=== PATIENT | female | born 1945 | race Caucasian/White ===

== ENCOUNTER 2016-08-10 14:45 | Inpatient (IN) | payer MEDICARE, MEDICAID ==
[2016-08-10 15:56] LABS: CHLORIDE,CL 98 mmol/L (98-107); SODIUM,NA 135 mmol/L (136-145)
[2016-08-10] MEDS ORDERED: Sennosides 8.6 MG Tab PO PRN (16:46)
[2016-08-10] MEDS ORDERED: Ondansetron 4 MG Tab.DIS PO PRN (16:46)
[2016-08-10] MEDS ORDERED: Magnesium Hydroxide 400 MG/5 ML Susp 30 ML Cup PO PRN (16:46)
[2016-08-10] MEDS ORDERED: Calcium Carbonate 750 MG Tab.Chew PO PRN (16:46)
[2016-08-10] MEDS ORDERED: Magnesium Hydroxide 400 MG/5 ML Susp 30 ML Cup PO ONE (16:53)
[2016-08-10] MEDS ORDERED: diphenhydrAMINE 25 MG Cap PO ONE (16:58)
[2016-08-10] MEDS ORDERED: Acetaminophen 325 MG Tab PO ONE (16:58)
[2016-08-10] MEDS ORDERED: ClonazePAM 0.5 MG Tab PO PRN (17:08)
[2016-08-10] MEDS ORDERED: Ferrous Sulfate 325 MG Tab PO ONE (17:09)
[2016-08-10] MEDS ORDERED: Sodium Chloride 0.9% 1,000 ML IV SCH (17:15)
--- NOTE | 2016-08-10 17:16 | PCM.HP ---
H&P History of Present Illness - General Date of Service: 08/10/16 Admit Problem/Dx: Admission Diagnosis/Problem Admission Diagnosis/Problem Anemia Source of Information: Patient, Family (Friends), Old records History Limitations: Reports: Altered mental status - History of Present Illness Initial Comments - Free Text/Narative: Patient presented to clinic due to weakness and mental status changes after falling on 08-08-16 experiencing a right humeral fracture. After work up in clinic, patient had 7.2 hgb with iron level of 11. Patient demonstrates occasional memory issues. Patient's friends state her living situation presents a possible safety issue, worsened now with her current limitations related to fall. Patient unable to get up without assistance from seated position in clinic. Patient also has shuffled gait. Onset of Symptoms: Reports: gradual Symptom Onset Date: 08/08/16 (Patient has declined in general and her fall Wednesday caused her symptoms to worse per her friends.) Location: Reports: generalized (weakness) - Related Data Allergies/Adverse Reactions: Allergies Allergy/AdvReac Type Severity Reaction Status Date / Time No Known Allergies Allergy Verified 08/08/16 17:49 Home Medications: Home Meds Etodolac 300 mg PO ASDIRECTED PRN 10/17/14 [History] Ferrous Sulfate 325 mg PO DAILY 10/17/14 [History] Omeprazole [Omeprazole] 20 mg PO BID 10/18/14 [History] ClonazePAM [KlonoPIN] 0.5 mg PO BID PRN 03/15/15 [History] PARoxetine [Paxil] 20 mg PO DAILY 03/15/15 [History] Hydrocodone/Acetaminophen [Hydrocodon-Acetaminophen 5-325] 1 each PO Q4HR PRN [History] Past Medical History Cardiovascular History: Reports: None (Patient denies) Respiratory History: Reports: None (patient denies, but is an active smoker) Gastrointestinal History: Reports: Other (see below) (previous bleeding ulcer) Genitourinary History: Reports: Other (see below) (prolapsed bladder) [employer] History: Reports: Musculoskeletal History: Reports: Fracture (right humerus) Neurological History: Reports: None (patient denies) Psychiatric History: Reports: Anxiety, Depression - Past Surgical History GI Surgical History: Reports: Appendectomy Musculoskeletal Surgical History: Reports: Shoulder surgery Social & Family History - Tobacco Use Smoking Status *Q: Current Every Day Smoker Years of Tobacco use: 25 Packs/Tins Daily: 0.5 Used Tobacco, but Quit: Yes Second Hand Smoke Exposure: No - Caffeine Use Caffeine Use: Reports: Coffee - Alcohol Use Alcohol Use History: Yes Days Per Week of Alcohol Use: 0 Number of Drinks Per Day: 0 Total Drinks Per Week: 0 Alcohol Use Frequency: Rarely - Recreational Drug Use Recreational Drug Use: No Drug Use in Last 12 Months: No H&P Review of Systems - Review of Systems: Review Of Systems: See Below General: Reports: weakness, fatigue HEENT: Reports: no symptoms Pulmonary: Reports: cough (secondary to smoking) Cardiovascular: Reports: no symptoms Gastrointestinal: Reports: Constipation Genitourinary: Reports: no symptoms Musculoskeletal: Reports: arm pain (right humerus fracture ) Skin: Reports: no symptoms Psychiatric: Reports: confusion, anxiety Neurological: Reports: confusion, difficulty walking, weakness Hematologic/Lymphatic: Reports: anemia Exam - Exam Exam: See Below - Vital Signs Weight: 63.503 kg - Exam General: alert, cooperative, other (intermittent confusion) HEENT: Conjunctiva clear, EACs clear, EOMI, Hearing intact, Nares patent, Normal nasal septum, Posterior pharynx clear, TMs clear, PERRLA Neck: supple, trachea midline, 2 Lungs: Rhonchi (bilateral) Cardiovascular: regular rate, regular rhythm Abdomen: normal bowel sounds, soft (Female) Exam: Other (prolapse) Rectal (Female) Exam: Hemorrhoids Back Exam: normal inspection Extremities: other (right humerus fracture- in immobilzer) Skin: warm, dry, intact Neuro Extensive - Mental Status: alert, memory loss-remote events Neuro Extensive - Motor, Sensory, Reflexes: abnormal gait Psychiatric: alert, anxious Physical Exam Comments:: limited abdominal and chest assessment due to immobilizer on right upper extremity - Patient Data Lab Results last 24 hrs: Laboratory Results - last 24 hr 08/10/16 08/10/16 08/10/16 Range/Units 15:31 15:31 15:41 WBC 9.8 (4.0-10.2) K/uL RBC 3.99 (3.77-5.09) M/uL Hgb 7.2 L* D (11.7-15.5) g/dL Hct 27.1 L (34.0-46.0) % MCV 67.9 L D (84.0-98.0) fL MCH 18.0 L (28.2-33.3) pg MCHC 26.6 L (31.7-36.0) g/dL RDW 20.6 H (11.2-14.1) % Plt Count 432 H (150-350) K/uL Neut % (Auto) 84.1 H (45.0-80.0) % Lymph % (Auto) 5.6 L (10.0-50.0) % [place] % (Auto) 9.2 (2.0-14.0) % Eos % (Auto) 0.1 (0.0-5.0) % Baso % (Auto) 1.0 (0.0-2.0) % Neut # 8.20 H (1.40-7.00) K/uL Lymph # 0.55 (0.50-3.50) K/uL [place] # 0.90 (0.00-1.00) K/uL Eos # 0.01 (0.00-0.50) K/uL Baso # 0.10 (0.00-0.20) K/uL Sodium 135 L (136-145) mmol/L Potassium 3.9 (3.5-5.1) mmol/L Chloride 98 (98-107) mmol/L Carbon Dioxide 29.9 (21.0-32.0) mmol/L BUN 12 (7-18) mg/dL Creatinine 0.57 (0.51-1.17) mg/dL Est Cr Clr Drug Dosing 73.80 mL/min Estimated GFR (MDRD) > 60 mL/min Glucose 113 H (74-106) mg/dL Calcium 9.4 (8.5-10.1) mg/dL Iron (50-175) ug/dL TIBC (250-450) ug/dL % Saturation Total Bilirubin 0.4 (0.2-1.0) mg/dL AST 26 (15-37) U/L ALT 22 (12-78) U/L Alkaline Phosphatase 88 (46-116) IU/L Total Protein 6.9 (6.4-8.2) g/dL Albumin 3.1 L (3.4-5.0) g/dL TSH, Ultra Sensitive 0.757 (0.358-3.740) mIU/mL Specimen Type Urinvoid Urine Color Yellow Urine Appearance Slightly cloudy Urine pH 5.5 (5.0-9.0) Ur Specific [place] >= 1.030 (1.005-1.030) Urine Protein Negative (NEGATIVE) mg/dL Urine Glucose (UA) Negative (NEGATIVE) mg/dL Urine Ketones Negative (NEGATIVE) mg/dL Urine Occult Blood Negative (NEGATIVE) Urine Nitrite Negative (NEGATIVE) Urine Bilirubin Small H (NEGATIVE) Urine Urobilinogen 0.2 (0.2-1.0) E.U./dL Ur Leukocyte Esterase Negative (NEGATIVE) Urine RBC 0-5 /HPF Urine WBC 0-5 /HPF Ur Epithelial Cells Few /LPF Urine Bacteria Few (NONE TO FEW) /HPF 08/10/16 Range/Units 15:59 WBC (4.0-10.2) K/uL RBC (3.77-5.09) M/uL Hgb (11.7-15.5) g/dL Hct (34.0-46.0) % MCV (84.0-98.0) fL MCH (28.2-33.3) pg MCHC (31.7-36.0) g/dL RDW (11.2-14.1) % Plt Count (150-350) K/uL Neut % (Auto) (45.0-80.0) % Lymph % (Auto) (10.0-50.0) % [place] % (Auto) (2.0-14.0) % Eos % (Auto) (0.0-5.0) % Baso % (Auto) (0.0-2.0) % Neut # (1.40-7.00) K/uL Lymph # (0.50-3.50) K/uL [place] # (0.00-1.00) K/uL Eos # (0.00-0.50) K/uL Baso # (0.00-0.20) K/uL Sodium (136-145) mmol/L Potassium (3.5-5.1) mmol/L Chloride (98-107) mmol/L Carbon Dioxide (21.0-32.0) mmol/L BUN (7-18) mg/dL Creatinine (0.51-1.17) mg/dL Est Cr Clr Drug Dosing mL/min Estimated GFR (MDRD) mL/min Glucose (74-106) mg/dL Calcium (8.5-10.1) mg/dL Iron 11 L (50-175) ug/dL TIBC 367 (250-450) ug/dL % Saturation 2.04326 Total Bilirubin (0.2-1.0) mg/dL AST (15-37) U/L ALT (12-78) U/L Alkaline Phosphatase (46-116) IU/L Total Protein (6.4-8.2) g/dL Albumin (3.4-5.0) g/dL TSH, Ultra Sensitive (0.358-3.740) mIU/mL Specimen Type Urine Color Urine Appearance Urine pH (5.0-9.0) Ur Specific [place] (1.005-1.030) Urine Protein (NEGATIVE) mg/dL Urine Glucose (UA) (NEGATIVE) mg/dL Urine Ketones (NEGATIVE) mg/dL Urine Occult Blood (NEGATIVE) Urine Nitrite (NEGATIVE) Urine Bilirubin (NEGATIVE) Urine Urobilinogen (0.2-1.0) E.U./dL Ur Leukocyte Esterase (NEGATIVE) Urine RBC /HPF Urine WBC /HPF Ur Epithelial Cells /LPF Urine Bacteria (NONE TO FEW) /HPF Result Diagrams: 08/10/16 15:31 08/10/16 15:31 [place] Results last 24 hrs: Microbiology 08/10/16 16:13 Occult Blood - Final Stool / Feces *Q Meaningful Use (ADM) - VTE *Q VTE Criteria *Q: VTE Pharmacological Contraindications *Q: Patient has Severe Anemia - Stroke *Q Stroke Criteria *Q: - AMI *Q AMI Criteria *Q: - Problem List (1) Anemia SNOMED Code(s): 423949617 ICD Code: D64.9 - ANEMIA, UNSPECIFIED Status: Acute Current Visit: Yes Problem Details: 08-10-16 -hgb in clinic was 7.2, 2 units of blood ordered, will re-check CBC in AM Qualifiers: Anemia type: iron deficiency Iron deficiency anemia type: unspecified iron deficiency Qualified Code(s): D50.9 - Iron deficiency anemia, unspecified (2) Generalized weakness SNOMED Code(s): 34224924 ICD Code: R53.1 - WEAKNESS Status: Acute Current Visit: Yes Problem Details: 08-10-16- PT/OT consult ordered for strengthening (3) Humerus fracture SNOMED Code(s): 05803560 ICD Code: S42.309A - UNSP FRACTURE OF SHAFT OF HUMERUS, UNSP ARM, INIT Status: Acute Current Visit: Yes Problem Details: - r/t to fall. Seen in [facility] ED on 08-08-19. Patient's right arm in immobilizer. Qualifiers: Encounter type: subsequent encounter Humerus Location: shaft Fracture type: closed Fracture morphology: transverse Fracture alignment: nondisplaced Laterality: right Fracture healing: with routine healing Qualified Code(s): S42.324D - Nondisplaced transverse fracture of shaft of humerus, right arm, subsequent encounter for fracture with routine healing (4) Confusion SNOMED Code(s): 111350439 ICD Code: R41.0 - DISORIENTATION, UNSPECIFIED Status: Acute Current Visit : Yes Problem Details: 08-10-16 forgetful taking medications and routine compliance issues. Forgetful with remote events. Patient's home is stated as being a possible risk at this time. (5) Nicotine dependence SNOMED Code(s): 16088768 ICD Code: F17.200 - NICOTINE DEPENDENCE, UNSPECIFIED, UNCOMPLICATED Status : Acute Current Visit: Yes Problem Details: 08-10-16- nicotine patch ordered for patient as she is a current every day smoker. 1/2 to 1 pack daily. Qualifiers: Nicotine product type: cigarettes Substance use status: uncomplicated Qualified Code(s): F17.210 - Nicotine dependence, cigarettes, uncomplicated (6) Comfort measures only status SNOMED Code(s): 64298625355256 ICD Code: Z51.5 - ENCOUNTER FOR PALLIATIVE CARE Status: Acute Current Visit: Yes (7) Prolapse of bladder SNOMED Code(s): 911711329 ICD Code: [id number] - Status: Acute Current Visit: Yes Problem Details: 08-10-2016 Noted on examination- denies need for assessment Problem List Initiated/Reviewed/Updated: Yes Orders Last 24hrs: Active Orders 24 hr Category Date Time Status Patient Status [ADT] Routine ADT 08/10/16 16:46 Active Activity as Tolerated [RC] .Routine Care 08/10/16 16:46 Ordered Antiembolic Devices [RC] .Routine Care 08/10/16 16:46 Ordered Cardiac Monitoring [RC] CONTINUOUS Care 08/10/16 16:57 Ordered Height and Weight [RC] DAILY Care 08/10/16 16:46 Ordered Height and Weight [RC] UPON Care 08/10/16 16:46 Ordered Intake and Output [RC] QSHIFT Care 08/10/16 16:46 Ordered Oxygen Therapy [RC] PRN Care 08/10/16 16:46 Ordered Up to Chair [RC] ASDIRECTED Care 08/10/16 16:46 Ordered Vaccines to be Administered [RC] PER UNIT ROUTINE Care 08/10/16 16:46 Ordered Verify Patient Consent Obtain [RC] ASDIRECTED Care 08/10/16 16:55 Ordered Vital Signs [RC] Q4HR Care 08/10/16 16:46 Ordered Consult to Case Management [CONS] Routine Cons 08/10/16 16:46 Ordered OT Evaluation and Treatment [CONS] Routine Cons 08/10/16 16:53 Active PT Evaluation and Treatment [CONS] Routine Cons 08/10/16 16:53 Active Regular Diet [DIET] Diet 08/10/16 Dinner Ordered BASIC METABOLIC PANEL,BMP [CHEM] Routine Lab 08/11/16 05:11 Ordered CBC WITH AUTO DIFF [HEME] Routine Lab 08/11/16 05:11 Ordered CULTURE URINE [RM] Routine Lab 08/10/16 15:59 Received RED BLOOD CELLS LP [BBK] Urgent Lab 08/10/16 16:55 Ordered TYPE AND SCREEN [BBK] Urgent Lab 08/10/16 16:55 Ordered Acetaminophen [Tylenol] Med 08/10/16 16:46 Ordered 650 mg PO Q6H PRN Acetaminophen/HYDROcodone [[place] 325-5 MG] Med 08/10/16 17:08 Ordered 1 each PO Q4HR PRN Calcium Carbonate [Tums Extra Strength] Med 08/10/16 16:46 Ordered 750 mg PO Q2H PRN ClonazePAM [KlonoPIN] Med 08/10/16 17:08 Ordered 0.5 mg PO BID PRN Etodolac [Lodine] Med 08/10/16 17:08 Ordered 300 mg PO ASDIRECTED PRN Ferrous Sulfate Med 08/11/16 08:00 Ordered 325 mg PO DAILY Ferrous Sulfate Med 08/10/16 17:09 Once 325 mg PO ONETIME ONE Furosemide [Lasix] Med 08/10/16 16:59 Once 20 mg IVPUSH NOW ONE Magnesium Hydroxide [Milk of Magnesia] Med 08/10/16 16:46 Ordered 30 ml PO DAILY PRN Omeprazole Med 08/10/16 18:00 Ordered 20 mg PO BID Ondansetron [Zofran ODT] Med 08/10/16 16:46 Ordered 4 mg PO Q6H PRN PARoxetine [Paxil] Med 08/11/16 08:00 Ordered 20 mg PO DAILY Sennosides [Senna] Med 08/10/16 16:46 Ordered 8.6 mg PO DAILY PRN Sodium Chloride 0.9% [Normal Saline] 250 ml Med 08/10/16 17:00 Ordered IV ASDIRECTED Sodium Chloride 0.9% [Saline Flush] Med 08/10/16 16:55 Ordered 10 ml FLUSH ASDIRECTED PRN Blood Transfusion Reflex Orders [OM.PC] Routine Ot 08/10/16 16:55 Ordered Blood Transfusion Reflex Orders [OM.PC] Routine Ot 08/10/16 16:57 Ordered Peripheral IV Insertion Adult [OM.PC] Urgent Oth 08/10/16 16:55 Ordered Transfuse Red Blood Cells [COMM] Urgent Ot 08/10/16 16:55 Ordered VTE Pharmacological Contraindications [AST] Routine Oth 08/10/16 16:46 Ordered Resuscitation Status Routine Resus Stat 08/10/16 16:46 Ordered Medication Orders Acetaminophen (Tylenol) 650 mg PO Q6H PRN PRN Reason: Pain/Fever Acetaminophen/Hydrocodone Bitart ([place] 325-5 Mg) tab PO Q4HR PRN PRN Reason: Pain Calcium Carbonate/Glycine (Tums Extra Strength) 750 mg PO Q2H PRN PRN Reason: Dyspepsia Clonazepam (Klonopin) 0.5 mg PO BID PRN PRN Reason: Anxiety Etodolac (Lodine) 300 mg PO ASDIRECTED PRN PRN Reason: back pain Ferrous Sulfate (Ferrous Sulfate) 325 mg PO DAILY GUERLINE Ferrous Sulfate (Ferrous Sulfate) 325 mg PO ONETIME ONE Stop: 08/10/16 17:10 Furosemide (Lasix) 20 mg IVPUSH ONETIME ONE Stop: 08/10/16 20:01 Sodium Chloride (Normal Saline) 1,000 mls @ 100 mls/hr IV ASDIRECTED GUERLINE Magnesium Hydroxide (Milk Of Magnesia) 30 ml PO DAILY PRN PRN Reason: Constipation Omeprazole (Omeprazole) 20 mg PO BID GUERLINE Ondansetron HCl (Zofran Odt) 4 mg PO Q6H PRN PRN Reason: Nausea/Vomiting Paroxetine HCl (Paxil) 20 mg PO DAILY GUERLINE Senna (Senna) 8.6 mg PO DAILY PRN PRN Reason: Constipation Sodium Chloride (Saline Flush) 10 ml FLUSH ASDIRECTED PRN PRN Reason: Keep Vein Open Assessment/Plan Comment:: See above.
[2016-08-10] MEDS ORDERED: diphenhydrAMINE 25 MG Cap ONE (19:43)
[2016-08-10] MEDS ORDERED: Ferrous Sulfate 325 MG Tab ONE (19:43)
[2016-08-10] MEDS: Nicotine 21 MG/24 Hr Patch TRDERM SCH (19:49)
[2016-08-10] MEDS: Omeprazole 20 MG Cap.CR PO SCH (19:49)
[2016-08-10] MEDS ORDERED: Furosemide 20 MG/2 ML VIAL IVPUSH ONE (20:00)
[2016-08-10] MEDS: Acetaminophen/HYDROcodone 325-5 MG Tab PO PRN (21:14)
[2016-08-10] MEDS ORDERED: Furosemide 20 MG/2 ML VIAL ONE (23:19)
[2016-08-11] MEDS: Acetaminophen/HYDROcodone 325-5 MG Tab PO PRN ×2 (02:16→08:38)
[2016-08-11] MEDS: Nicotine 21 MG/24 Hr Patch TRDERM SCH (07:33)
[2016-08-11] MEDS: Omeprazole 20 MG Cap.CR PO SCH ×2 (07:35→16:59)
[2016-08-11] MEDS: Ferrous Sulfate 325 MG Tab PO SCH (07:35)
[2016-08-11] MEDS: PARoxetine 20 MG Tab PO SCH (07:35)
[2016-08-11 08:23] LABS: CHLORIDE,CL 102 mmol/L (98-107); SODIUM,NA 139 mmol/L (136-145)
--- NOTE | 2016-08-11 08:31 | PCM.PN ---
- General Info Date of Service: 08/11/16 Admission Dx/Problem (Free Text): [email or web address] Doing fine since admission appetite back"" Functional Status: Reports: pain controlled - Review of Systems General: Reports: no symptoms HEENT: Reports: no symptoms Pulmonary: Reports: no symptoms Cardiovascular: Reports: no symptoms Gastrointestinal: Reports: No symptoms Genitourinary: Reports: no symptoms Musculoskeletal: Reports: no symptoms Skin: Reports: no symptoms Neurological: Reports: no symptoms Psychiatric: Reports: anxiety - Patient Data Vitals - most recent: Last Vital Signs Temp 36.3 C 08/11/16 07:30 Pulse 78 08/11/16 07:30 Resp 18 08/11/16 02:43 BP 136/71 08/11/16 07:30 Pulse Ox 93 L 08/11/16 07:30 Weight - most recent: 63.503 kg I&O - last 24 hours: Intake & Output 08/10/16 08/11/16 08/11/16 22:59 06:59 14:59 Intake Total 540 400 Balance 540 400 Lab Results last 24 hrs: Laboratory Results - last 24 hr 08/10/16 08/10/16 08/10/16 Range/Units 15:31 15:31 15:31 WBC 9.8 (4.0-10.2) K/uL RBC 3.99 (3.77-5.09) M/uL Hgb 7.2 L* D (11.7-15.5) g/dL Hct 27.1 L (34.0-46.0) % MCV 67.9 L D (84.0-98.0) fL MCH 18.0 L (28.2-33.3) pg MCHC 26.6 L (31.7-36.0) g/dL RDW 20.6 H (11.2-14.1) % Plt Count 432 H (150-350) K/uL Neut % (Auto) 84.1 H (45.0-80.0) % Lymph % (Auto) 5.6 L (10.0-50.0) % Collin % (Auto) 9.2 (2.0-14.0) % Eos % (Auto) 0.1 (0.0-5.0) % Baso % (Auto) 1.0 (0.0-2.0) % Neut # 8.20 H (1.40-7.00) K/uL Lymph # 0.55 (0.50-3.50) K/uL Collin # 0.90 (0.00-1.00) K/uL Eos # 0.01 (0.00-0.50) K/uL Baso # 0.10 (0.00-0.20) K/uL Sodium 135 L (136-145) mmol/L Potassium 3.9 (3.5-5.1) mmol/L Chloride 98 (98-107) mmol/L Carbon Dioxide 29.9 (21.0-32.0) mmol/L BUN 12 (7-18) mg/dL Creatinine 0.57 (0.51-1.17) mg/dL Est Cr Clr Drug Dosing 73.80 mL/min Estimated GFR (MDRD) > 60 mL/min Glucose 113 H (74-106) mg/dL Calcium 9.4 (8.5-10.1) mg/dL Iron (50-175) ug/dL TIBC (250-450) ug/dL % Saturation Total Bilirubin 0.4 (0.2-1.0) mg/dL AST 26 (15-37) U/L ALT 22 (12-78) U/L Alkaline Phosphatase 88 (46-116) IU/L Total Protein 6.9 (6.4-8.2) g/dL Albumin 3.1 L (3.4-5.0) g/dL TSH, Ultra Sensitive 0.757 (0.358-3.740) mIU/mL Specimen Type Urine Color Urine Appearance Urine pH (5.0-9.0) Ur Specific Walker (1.005-1.030) Urine Protein (NEGATIVE) mg/dL Urine Glucose (UA) (NEGATIVE) mg/dL Urine Ketones (NEGATIVE) mg/dL Urine Occult Blood (NEGATIVE) Urine Nitrite (NEGATIVE) Urine Bilirubin (NEGATIVE) Urine Urobilinogen (0.2-1.0) E.U./dL Ur Leukocyte Esterase (NEGATIVE) Urine RBC /HPF Urine WBC /HPF Ur Epithelial Cells /LPF Urine Bacteria (NONE TO FEW) /HPF Blood Type A POSITIVE Gel Antibody Screen Negative Crossmatch See Detail 08/10/16 08/10/16 08/11/16 Range/Units 15:41 15:59 07:36 WBC 8.7 (4.0-10.2) K/uL RBC 4.75 (3.77-5.09) M/uL Hgb 9.7 L D (11.7-15.5) g/dL Hct 34.1 (34.0-46.0) % MCV 71.8 L D (84.0-98.0) fL MCH 20.4 L (28.2-33.3) pg MCHC 28.4 L (31.7-36.0) g/dL RDW 22.4 H (11.2-14.1) % Plt Count 328 D (150-350) K/uL Neut % (Auto) 71.2 (45.0-80.0) % Lymph % (Auto) 15.7 (10.0-50.0) % Collin % (Auto) 11.5 (2.0-14.0) % Eos % (Auto) 0.9 (0.0-5.0) % Baso % (Auto) 0.7 (0.0-2.0) % Neut # 6.19 (1.40-7.00) K/uL Lymph # 1.36 (0.50-3.50) K/uL Collin # 1.00 (0.00-1.00) K/uL Eos # 0.08 (0.00-0.50) K/uL Baso # 0.06 (0.00-0.20) K/uL Sodium (136-145) mmol/L Potassium (3.5-5.1) mmol/L Chloride (98-107) mmol/L Carbon Dioxide (21.0-32.0) mmol/L BUN (7-18) mg/dL Creatinine (0.51-1.17) mg/dL Est Cr Clr Drug Dosing mL/min Estimated GFR (MDRD) mL/min Glucose (74-106) mg/dL Calcium (8.5-10.1) mg/dL Iron 11 L (50-175) ug/dL TIBC 367 (250-450) ug/dL % Saturation 2.92226 Total Bilirubin (0.2-1.0) mg/dL AST (15-37) U/L ALT (12-78) U/L Alkaline Phosphatase (46-116) IU/L Total Protein (6.4-8.2) g/dL Albumin (3.4-5.0) g/dL TSH, Ultra Sensitive (0.358-3.740) mIU/mL Specimen Type Urinvoid Urine Color Yellow Urine Appearance Slightly cloudy Urine pH 5.5 (5.0-9.0) Ur Specific Walker >= 1.030 (1.005-1.030) Urine Protein Negative (NEGATIVE) mg/dL Urine Glucose (UA) Negative (NEGATIVE) mg/dL Urine Ketones Negative (NEGATIVE) mg/dL Urine Occult Blood Negative (NEGATIVE) Urine Nitrite Negative (NEGATIVE) Urine Bilirubin Small H (NEGATIVE) Urine Urobilinogen 0.2 (0.2-1.0) E.U./dL Ur Leukocyte Esterase Negative (NEGATIVE) Urine RBC 0-5 /HPF Urine WBC 0-5 /HPF Ur Epithelial Cells Few /LPF Urine Bacteria Few (NONE TO FEW) /HPF Blood Type Gel Antibody Screen Crossmatch Jordan Results last 24 hrs: Microbiology 08/10/16 16:13 Occult Blood - Final Stool / Feces Med Orders - Current: Current Medications Acetaminophen (Tylenol) 650 mg PO Q6H PRN PRN Reason: Pain/Fever Acetaminophen/Hydrocodone Bitart ([place] 325-5 Mg) 1 tab PO Q4HR PRN PRN Reason: Pain Last Admin: 08/11/16 02:16 Dose: 1 tab Calcium Carbonate/Glycine (Tums Extra Strength) 750 mg PO Q2H PRN PRN Reason: Dyspepsia Last Admin: 08/11/16 04:42 Dose: 750 mg Clonazepam (Klonopin) 0.5 mg PO BID PRN PRN Reason: Anxiety Etodolac (Lodine) 300 mg PO TID PRN PRN Reason: back pain Ferrous Sulfate (Ferrous Sulfate) 325 mg PO DAILY [facility] Last Admin: 08/11/16 07:35 Dose: 325 mg Sodium Chloride (Normal Saline) 1,000 mls @ 100 mls/hr IV ASDIRECTED [facility] Last Admin: 08/11/16 02:25 Dose: 100 mls/hr Magnesium Hydroxide (Milk Of Magnesia) 30 ml PO DAILY PRN PRN Reason: Constipation Nicotine (Habitrol) 21 mg TRDERM DAILY [facility] Last Admin: 08/11/16 07:33 Dose: 21 mg Omeprazole (Omeprazole) 20 mg PO BIDAC [facility] Last Admin: 08/11/16 07:35 Dose: 20 mg Ondansetron HCl (Zofran Odt) 4 mg PO Q6H PRN PRN Reason: Nausea/Vomiting Paroxetine HCl (Paxil) 20 mg PO DAILY [facility] Last Admin: 08/11/16 07:35 Dose: 20 mg Senna (Senna) 8.6 mg PO DAILY PRN PRN Reason: Constipation Sodium Chloride (Saline Flush) 10 ml FLUSH ASDIRECTED PRN PRN Reason: Keep Vein Open Discontinued Medications Acetaminophen (Tylenol) 650 mg PO ONETIME ONE Stop: 08/10/16 16:59 Last Admin: 08/10/16 19:48 Dose: 650 mg Diphenhydramine HCl (Benadryl) 25 mg PO ONETIME ONE Stop: 08/10/16 16:59 Last Admin: 08/10/16 19:49 Dose: 25 mg Diphenhydramine HCl (Benadryl) Confirm Administered Dose 25 mg .ROUTE .STK-MED ONE Stop: 08/10/16 19:44 Last Admin: 08/10/16 19:48 Dose: Not Given Ferrous Sulfate (Ferrous Sulfate) 325 mg PO ONETIME ONE Stop: 08/10/16 17:10 Last Admin: 08/10/16 19:49 Dose: 325 mg Ferrous Sulfate (Ferrous Sulfate) Confirm Administered Dose 325 mg .ROUTE .STK- MED ONE Stop: 08/10/16 19:44 Last Admin: 08/10/16 19:48 Dose: Not Given Furosemide (Lasix) 20 mg IVPUSH ONETIME ONE Stop: 08/10/16 20:01 Last Admin: 08/10/16 23:28 Dose: 20 mg Furosemide (Lasix) Confirm Administered Dose 20 mg .ROUTE .STK-MED ONE Stop: 08/10/16 23:20 Last Admin: 08/10/16 23:29 Dose: Not Given Magnesium Hydroxide (Milk Of Magnesia) 30 ml PO ONETIME ONE Stop: 08/10/16 16:54 Last Admin: 08/10/16 19:49 Dose: 30 ml - Exam General: alert, oriented, cooperative, mild distress HEENT: Pupils equal Neck: supple Lungs: Clear to auscultation, Normal respiratory effort Cardiovascular: regular rate, regular rhythm Abdomen: bowel sounds present Extremities: no edema Skin: warm, dry, intact Psy/Mental Status: alert, normal affect, normal mood - Problem List & Annotations (1) Anemia SNOMED Code(s): 686220320 Code(s): D64.9 - ANEMIA, UNSPECIFIED Status: Acute Current Visit: Yes Qualifiers: Anemia type: iron deficiency Iron deficiency anemia type: unspecified iron deficiency Qualified Code(s): D50.9 - Iron deficiency anemia, unspecified Annotation/Comment:: 08-10-16 -hgb in clinic was 7.2, 2 units of blood ordered, will re-check CBC in AM -july hemoglobin shows improvement, states appetite is better and feels better. Advised we will repeat CBC over the next 24-48 hours also will do stool test for occult blood as it was negative in clinic setting (2) Generalized weakness SNOMED Code(s): 57850674 Code(s): R53.1 - WEAKNESS Status: Acute Current Visit: Yes Annotation/ Comment:: 08-10-16- PT/OT consult ordered for strengthening Jul PT OT to assess (3) Humerus fracture SNOMED Code(s): 99315119 Code(s): S42.309A - UNSP FRACTURE OF SHAFT OF HUMERUS, UNSP ARM, INIT Status: Acute Current Visit: Yes Qualifiers: Encounter type: subsequent encounter Humerus Location: shaft Fracture type: closed Fracture morphology: transverse Fracture alignment: nondisplaced Laterality: right Fracture healing: with routine healing Qualified Code(s): S42.324D - Nondisplaced transverse fracture of shaft of humerus, right arm, subsequent encounter for fracture with routine healing Annotation/Comment:: [id number]- r/t to fall. Seen in [facility] ED on 08-08-19. Patient's right arm in immobilizer. -july maintains immobilization (4) Confusion SNOMED Code(s): 215249603 Code(s): R41.0 - DISORIENTATION, UNSPECIFIED Status: Acute Current Visit : Yes Annotation/Comment:: 08-10-16 forgetful taking medications and routine compliance issues. Forgetful with remote events. Patient's home is stated as being a possible risk at this time. (5) Nicotine dependence SNOMED Code(s): 96113223 Code(s): F17.200 - NICOTINE DEPENDENCE, UNSPECIFIED, UNCOMPLICATED Status: Acute Current Visit: Yes Qualifiers: Nicotine product type: cigarettes Substance use status: uncomplicated Qualified Code(s): F17.210 - Nicotine dependence, cigarettes, uncomplicated Annotation/Comment:: 08-10-16- nicotine patch ordered for patient as she is a current every day smoker. 1/2 to 1 pack daily. -july patch going well noted some stimulation from this but no urge to smoke (6) Comfort measures only status SNOMED Code(s): 24540302670336 Code(s): Z51.5 - ENCOUNTER FOR PALLIATIVE CARE Status: Acute Current Visit: Yes Annotation/Comment:: -july Discussed component of home health cares will have social media manager discussed. (7) Prolapse of bladder SNOMED Code(s): 875761525 Code(s): YTX3345 - Status: Acute Current Visit: Yes Annotation/Comment :: 08-10-2016 Noted on examination- denies need for assessment - Problem List Review Problem List Initiated/Reviewed/Updated: Yes - My Orders Last 24 Hours: My Active Orders 08/10/16 15:59 CULTURE URINE [RM] Routine 08/10/16 16:46 Patient Status [ADT] Routine Activity as Tolerated [RC] .Routine Antiembolic Devices [RC] .Routine Height and Weight [RC] DAILY Intake and Output [RC] QSHIFT Oxygen Therapy [RC] PRN Up to Chair [RC] ASDIRECTED Vaccines to be Administered [RC] PER UNIT ROUTINE Vital Signs [RC] Q4HR Consult to Case Management [CONS] Routine Acetaminophen [Tylenol] 650 mg PO Q6H PRN Calcium Carbonate [Tums Extra Strength] 750 mg PO Q2H PRN Magnesium Hydroxide [Milk of Magnesia] 30 ml PO DAILY PRN Ondansetron [Zofran ODT] 4 mg PO Q6H PRN Sennosides [Senna] 8.6 mg PO DAILY PRN VTE Pharmacological Contraindications [AST] Routine Resuscitation Status Routine 08/10/16 16:53 OT Evaluation and Treatment [CONS] Routine PT Evaluation and Treatment [CONS] Routine 08/10/16 16:55 Verify Patient Consent Obtain [RC] ASDIRECTED Sodium Chloride 0.9% [Saline Flush] 10 ml FLUSH ASDIRECTED PRN Blood Transfusion Reflex Orders [OM.PC] Routine Peripheral IV Insertion Adult [OM.PC] Urgent Transfuse Red Blood Cells [COMM] Urgent 08/10/16 16:57 Cardiac Monitoring [RC] Q2HR Blood Transfusion Reflex Orders [OM.PC] Routine 08/10/16 17:08 Acetaminophen/HYDROcodone [[place] 325-5 MG] 1 tab PO Q4HR PRN ClonazePAM [KlonoPIN] 0.5 mg PO BID PRN Etodolac [Lodine] 300 mg PO TID PRN 08/10/16 17:15 Sodium Chloride 0.9% [Normal Saline] 1,000 ml IV ASDIRECTED 08/10/16 17:30 Omeprazole 20 mg PO BIDAC 08/10/16 17:45 Nicotine [Habitrol] 21 mg TRDERM DAILY 08/10/16 Dinner Regular Diet [DIET] 08/11/16 07:36 BASIC METABOLIC PANEL,BMP [CHEM] Routine 08/11/16 08:00 Ferrous Sulfate 325 mg PO DAILY PARoxetine [Paxil] 20 mg PO DAILY - Plan Plan:: See above.
[2016-08-11] MEDS: Acetaminophen 325 MG Tab PO PRN (15:48)
[2016-08-11] MEDS: Sodium Chloride 0.9% 10 ML Syringe FLUSH PRN (20:58)
[2016-08-12] MEDS: PARoxetine 20 MG Tab PO SCH (07:42)
[2016-08-12] MEDS: Ferrous Sulfate 325 MG Tab PO SCH (07:42)
[2016-08-12] MEDS: Omeprazole 20 MG Cap.CR PO SCH ×2 (07:42→18:48)
[2016-08-12] MEDS: Nicotine 21 MG/24 Hr Patch TRDERM SCH (07:43)
[2016-08-12] MEDS: Acetaminophen 325 MG Tab PO PRN (10:19)
--- NOTE | 2016-08-12 18:35 | PCM.PN ---
- General Info Date of Service: 08/12/16 Admission Dx/Problem (Free Text): [email or web address] Doing fine since admission appetite back"" Functional Status: Reports: pain controlled, tolerating diet, ambulating - Review of Systems General: Reports: no symptoms HEENT: Reports: no symptoms Pulmonary: Reports: no symptoms Cardiovascular: Reports: no symptoms Gastrointestinal: Reports: No symptoms Genitourinary: Reports: no symptoms Musculoskeletal: Reports: other (no acute changes. Healing right arm fracture. ) Skin: Reports: no symptoms Neurological: Reports: no symptoms Psychiatric: Reports: no symptoms - Patient Data Vitals - most recent: Last Vital Signs Temp 37.1 C 08/12/16 16:00 Pulse 70 08/12/16 16:00 Resp 18 08/12/16 16:00 BP 121/55 L 08/12/16 16:00 Pulse Ox 96 08/12/16 16:00 Weight - most recent: 63.503 kg I&O - last 24 hours: Intake & Output 08/12/16 08/12/16 08/12/16 06:59 14:59 22:59 Intake Total 150 240 Output Total 300 Balance -300 150 240 Lab Results last 24 hrs: Laboratory Results - last 24 hr 08/12/16 Range/Units 07:30 WBC 8.2 (4.0-10.2) K/uL RBC 4.40 (3.77-5.09) M/uL Hgb 9.0 L (11.7-15.5) g/dL Hct 32.3 L (34.0-46.0) % MCV 73.4 L (84.0-98.0) fL MCH 20.5 L (28.2-33.3) pg MCHC 27.9 L (31.7-36.0) g/dL RDW 22.6 H (11.2-14.1) % Plt Count 321 (150-350) K/uL Neut % (Auto) 78.3 (45.0-80.0) % Lymph % (Auto) 10.3 (10.0-50.0) % Dane % (Auto) 9.7 (2.0-14.0) % Eos % (Auto) 1.1 (0.0-5.0) % Baso % (Auto) 0.6 (0.0-2.0) % Neut # 6.43 (1.40-7.00) K/uL Lymph # 0.85 (0.50-3.50) K/uL Dane # 0.80 (0.00-1.00) K/uL Eos # 0.09 (0.00-0.50) K/uL Baso # 0.05 (0.00-0.20) K/uL Jordan Results last 24 hrs: Microbiology 08/12/16 12:30 Occult Blood - Final Stool / Feces 08/10/16 15:59 Urine Culture - Final Urine, Voided MIXED ALVARO SUGGESTIVE OF CONTAMINATION. Med Orders - Current: Current Medications Acetaminophen (Tylenol) 650 mg PO Q6H PRN PRN Reason: Pain/Fever Last Admin: 08/12/16 10:19 Dose: 650 mg Acetaminophen/Hydrocodone Bitart ([place] 325-5 Mg) 1 tab PO Q4HR PRN PRN Reason: Pain Last Admin: 08/11/16 08:38 Dose: 1 tab Calcium Carbonate/Glycine (Tums Extra Strength) 750 mg PO Q2H PRN PRN Reason: Dyspepsia Last Admin: 08/11/16 04:42 Dose: 750 mg Clonazepam (Klonopin) 0.5 mg PO BID PRN PRN Reason: Anxiety Last Admin: 08/11/16 23:47 Dose: 0.5 mg Etodolac (Lodine) 300 mg PO TID PRN PRN Reason: back pain Ferrous Sulfate (Ferrous Sulfate) 325 mg PO DAILY [facility] Last Admin: 08/12/16 07:42 Dose: 325 mg Magnesium Hydroxide (Milk Of Magnesia) 30 ml PO DAILY PRN PRN Reason: Constipation Nicotine (Habitrol) 21 mg TRDERM DAILY [facility] Last Admin: 08/12/16 07:43 Dose: 21 mg Omeprazole (Omeprazole) 20 mg PO BIDAC [facility] Last Admin: 08/12/16 07:42 Dose: 20 mg Ondansetron HCl (Zofran Odt) 4 mg PO Q6H PRN PRN Reason: Nausea/Vomiting Paroxetine HCl (Paxil) 20 mg PO DAILY [facility] Last Admin: 08/12/16 07:42 Dose: 20 mg Senna (Senna) 8.6 mg PO DAILY PRN PRN Reason: Constipation Sodium Chloride (Saline Flush) 10 ml FLUSH ASDIRECTED PRN PRN Reason: Keep Vein Open Last Admin: 08/11/16 20:58 Dose: 10 ml Discontinued Medications Acetaminophen (Tylenol) 650 mg PO ONETIME ONE Stop: 08/10/16 16:59 Last Admin: 08/10/16 19:48 Dose: 650 mg Diphenhydramine HCl (Benadryl) 25 mg PO ONETIME ONE Stop: 08/10/16 16:59 Last Admin: 08/10/16 19:49 Dose: 25 mg Diphenhydramine HCl (Benadryl) Confirm Administered Dose 25 mg .ROUTE .STK-MED ONE Stop: 08/10/16 19:44 Last Admin: 08/10/16 19:48 Dose: Not Given Ferrous Sulfate (Ferrous Sulfate) 325 mg PO ONETIME ONE Stop: 08/10/16 17:10 Last Admin: 08/10/16 19:49 Dose: 325 mg Ferrous Sulfate (Ferrous Sulfate) Confirm Administered Dose 325 mg .ROUTE .STK- MED ONE Stop: 08/10/16 19:44 Last Admin: 08/10/16 19:48 Dose: Not Given Furosemide (Lasix) 20 mg IVPUSH ONETIME ONE Stop: 08/10/16 20:01 Last Admin: 08/10/16 23:28 Dose: 20 mg Furosemide (Lasix) Confirm Administered Dose 20 mg .ROUTE .STK-MED ONE Stop: 08/10/16 23:20 Last Admin: 08/10/16 23:29 Dose: Not Given Sodium Chloride (Normal Saline) 1,000 mls @ 100 mls/hr IV ASDIRECTED [facility] Last Admin: 08/11/16 02:25 Dose: 100 mls/hr Magnesium Hydroxide (Milk Of Magnesia) 30 ml PO ONETIME ONE Stop: 08/10/16 16:54 Last Admin: 08/10/16 19:49 Dose: 30 ml - Exam General: alert, oriented, cooperative, no acute distress HEENT: Pupils equal, Pupils reactive, EOMI Neck: supple Lungs: Clear to auscultation, Normal respiratory effort Cardiovascular: regular rate, regular rhythm Abdomen: bowel sounds present, soft, no tenderness, no distension (Female) Exam: Deferred Back Exam: normal inspection Extremities: no calf tenderness Skin: warm, dry Neurological: no new focal deficit Psy/Mental Status: alert, normal affect, normal mood - Problem List & Annotations (1) Anemia SNOMED Code(s): 854674793 Code(s): D64.9 - ANEMIA, UNSPECIFIED Status: Acute Priority: High Current Visit: Yes Qualifiers: Anemia type: iron deficiency Iron deficiency anemia type: unspecified iron deficiency Qualified Code(s): D50.9 - Iron deficiency anemia, unspecified Annotation/Comment:: 08-10-16 -hgb in clinic was 7.2, 2 units of blood ordered, will re-check CBC in AM -july hemoglobin shows improvement, states appetite is better and feels better. Advised we will repeat CBC over the next 24-48 hours also will do stool test for occult blood as it was negative in clinic setting (2) Comfort measures only status SNOMED Code(s): 86112576547895 Code(s): Z51.5 - ENCOUNTER FOR PALLIATIVE CARE Status: Acute Priority: Medium Current Visit: Yes Annotation/Comment:: July Discussed component of home health cares will have social worker assistant discussed. (3) Confusion SNOMED Code(s): 242533389 Code(s): R41.0 - DISORIENTATION, UNSPECIFIED Status: Acute Priority: High Current Visit: Yes Annotation/Comment:: 08-10-16 forgetful taking medications and routine compliance issues. Forgetful with remote events. Patient 's home is stated as being a possible risk at this time. (4) Generalized weakness SNOMED Code(s): 88704985 Code(s): R53.1 - WEAKNESS Status: Acute Priority: Medium Current Visit : Yes Annotation/Comment:: 08-10-16- PT/OT consult ordered for strengthening Jul PT OT to assess (5) Humerus fracture SNOMED Code(s): 48094978 Code(s): S42.309A - UNSP FRACTURE OF SHAFT OF HUMERUS, UNSP ARM, INIT Status: Acute Priority: Low Current Visit: Yes Qualifiers: Encounter type: subsequent encounter Humerus Location: shaft Fracture type: closed Fracture morphology: transverse Fracture alignment: nondisplaced Laterality: right Fracture healing: with routine healing Qualified Code(s): S42.324D - Nondisplaced transverse fracture of shaft of humerus, right arm, subsequent encounter for fracture with routine healing Annotation/Comment:: [id number]- r/t to fall. Seen in [facility] ED on 08-08-19. Patient's right arm in immobilizer. July maintains immobilization (6) Nicotine dependence SNOMED Code(s): 39406576 Code(s): F17.200 - NICOTINE DEPENDENCE, UNSPECIFIED, UNCOMPLICATED Status: Acute Priority: Medium Current Visit: Yes Qualifiers: Nicotine product type: cigarettes Substance use status: uncomplicated Qualified Code(s): F17.210 - Nicotine dependence, cigarettes, uncomplicated Annotation/Comment:: 08-10-16- nicotine patch ordered for patient as she is a current every day smoker. 1/2 to 1 pack daily. -july patch going well noted some stimulation from this but no urge to smoke (7) Prolapse of bladder SNOMED Code(s): 386404378 Code(s): TZZ3821 - Status: Acute Priority: Low Current Visit: Yes Annotation/Comment:: 08-10-2016 Noted on examination- denies need for assessment - Problem List Review Problem List Initiated/Reviewed/Updated: Yes - Assessment Assessment:: Patient admitted and treated for anemia, weakness, mental status changes. Improving. Hgb 9.0 today. TIBC 367. % Saturation 2.99 Negative for occult blood x2 Significant concerns as to patient's safety at home given baseline confusion issues and compliance with medications. PT and OT are working with patient. When asked during visit about therapy, patient denied seeing PT and OT. Patient very much against going on swing bed status tomorrow for further strengthening and work with PT and OT. She said that her daughter is coming into town for the weekend and patient wants out to be with daughter. Patient denies feeling weak/unsafe given that her right arm is broken and in sling. - Plan Plan:: See above. Decision will need to be made concerning Swing Bed stay given patients issues. PT, OT, and Rug Sizer will need to weigh in. Again, there are concerns as to patient returning to current living situation as far as safety and health.
[2016-08-12] MEDS: Acetaminophen/HYDROcodone 325-5 MG Tab PO PRN (22:54)
[2016-08-13] MEDS: Omeprazole 20 MG Cap.CR PO SCH (07:23)
[2016-08-13] MEDS: Nicotine 21 MG/24 Hr Patch TRDERM SCH (07:24)
[2016-08-13] MEDS: Sodium Chloride 0.9% 10 ML Syringe FLUSH PRN (07:24)
[2016-08-13] MEDS: Ferrous Sulfate 325 MG Tab PO SCH (07:24)
[2016-08-13] MEDS: PARoxetine 20 MG Tab PO SCH (07:24)
[2016-08-13 07:29] VITALS: BP 131/67
[2016-08-13] MEDS: Acetaminophen 325 MG Tab PO PRN (08:45)
--- NOTE | 2016-08-13 14:05 | PCM.PN ---
Addendum entered and electronically signed by Ministerio Recinos NP 08/25/16 08: 33: Plan:: See above. Decision will need to be made concerning Swing Bed stay given patients issues. PT, OT, and Automatic Tire Tester will need to weigh in. Again, there are concerns as to patient returning to current living situation as far as safety and health. Today 13 August 2016 symptoms states she is not willing to pursue swing bed status and will be going home for private vehicle with a friend able to pick her up this afternoon. She does improve significantly in her strength secondary of transfusion. We did discuss aspects a home health with therapy would be second intention as preference for swing bed status which she declines as her daughter is coming to visit this weekend. She does speak a friend picking her up at 3:00 when she finishes her shift at [facility], I do believe this is the same person that stated that the home was not in ideal condition for her safety with the weakness and the fractured right humerus. This is of concern to me to discharge with conflicting stories although verification of the home has not been fully clarified. This individual is unable to pick her up for transfer home at time of discharge. We did delay the time for discharge until finding a reliable ride which is confirmed to me at 1330 hours. Strong encouragement for followup, will need to maintain home on status for [facility]. And will pursue therapy there until strong enough to be discharged from home services. She is in agreement as with this aspect did meet qualifications for oxygen with 83% on saturation 88% dropping down to seventy-eight with oxygen prior to ambulation. 84% room air for nighttime desaturation status. Original Note: - General Info Date of Service: 08/13/16 Functional Status: Reports: pain controlled - Review of Systems General: Reports: no symptoms HEENT: Reports: no symptoms Pulmonary: Reports: no symptoms Cardiovascular: Reports: no symptoms Gastrointestinal: Reports: No symptoms Genitourinary: Reports: no symptoms Musculoskeletal: Reports: no symptoms Skin: Reports: no symptoms Neurological: Reports: no symptoms Psychiatric: Reports: no symptoms - Patient Data Vitals - most recent: Last Vital Signs Temp 36.6 C 08/13/16 07:27 Pulse 71 08/13/16 07:27 Resp 19 08/13/16 07:27 BP 131/67 08/13/16 07:27 Pulse Ox 84 L 08/13/16 07:27 Weight - most recent: 73.936 kg I&O - last 24 hours: Intake & Output 08/12/16 08/13/16 08/13/16 22:59 06:59 14:59 Intake Total 480 320 Output Total 400 300 Balance 80 20 Jordan Results last 24 hrs: Microbiology 08/12/16 12:30 Occult Blood - Final Stool / Feces 08/10/16 15:59 Urine Culture - Final Urine, Voided MIXED ALVARO SUGGESTIVE OF CONTAMINATION. Med Orders - Current: Current Medications Acetaminophen (Tylenol) 650 mg PO Q6H PRN PRN Reason: Pain/Fever Last Admin: 08/13/16 08:45 Dose: 650 mg Acetaminophen/Hydrocodone Bitart (Herod 325-5 Mg) 1 tab PO Q4HR PRN PRN Reason: Pain Last Admin: 08/12/16 22:54 Dose: 1 tab Calcium Carbonate/Glycine (Tums Extra Strength) 750 mg PO Q2H PRN PRN Reason: Dyspepsia Last Admin: 08/11/16 04:42 Dose: 750 mg Clonazepam (Klonopin) 0.5 mg PO BID PRN PRN Reason: Anxiety Last Admin: 08/11/16 23:47 Dose: 0.5 mg Etodolac (Lodine) 300 mg PO TID PRN PRN Reason: back pain Ferrous Sulfate (Ferrous Sulfate) 325 mg PO DAILY [facility] Last Admin: 08/13/16 07:24 Dose: 325 mg Magnesium Hydroxide (Milk Of Magnesia) 30 ml PO DAILY PRN PRN Reason: Constipation Nicotine (Habitrol) 21 mg TRDERM DAILY [facility] Last Admin: 08/13/16 07:24 Dose: 21 mg Omeprazole (Omeprazole) 20 mg PO BIDAC [facility] Last Admin: 08/13/16 07:23 Dose: 20 mg Ondansetron HCl (Zofran Odt) 4 mg PO Q6H PRN PRN Reason: Nausea/Vomiting Paroxetine HCl (Paxil) 20 mg PO DAILY [facility] Last Admin: 08/13/16 07:24 Dose: 20 mg Senna (Senna) 8.6 mg PO DAILY PRN PRN Reason: Constipation Discontinued Medications Acetaminophen (Tylenol) 650 mg PO ONETIME ONE Stop: 08/10/16 16:59 Last Admin: 08/10/16 19:48 Dose: 650 mg Diphenhydramine HCl (Benadryl) 25 mg PO ONETIME ONE Stop: 08/10/16 16:59 Last Admin: 08/10/16 19:49 Dose: 25 mg Diphenhydramine HCl (Benadryl) Confirm Administered Dose 25 mg .ROUTE .STK-MED ONE Stop: 08/10/16 19:44 Last Admin: 08/10/16 19:48 Dose: Not Given Ferrous Sulfate (Ferrous Sulfate) 325 mg PO ONETIME ONE Stop: 08/10/16 17:10 Last Admin: 08/10/16 19:49 Dose: 325 mg Ferrous Sulfate (Ferrous Sulfate) Confirm Administered Dose 325 mg .ROUTE .STK- MED ONE Stop: 08/10/16 19:44 Last Admin: 08/10/16 19:48 Dose: Not Given Furosemide (Lasix) 20 mg IVPUSH ONETIME ONE Stop: 08/10/16 20:01 Last Admin: 08/10/16 23:28 Dose: 20 mg Furosemide (Lasix) Confirm Administered Dose 20 mg .ROUTE .STK-MED ONE Stop: 08/10/16 23:20 Last Admin: 08/10/16 23:29 Dose: Not Given Sodium Chloride (Normal Saline) 1,000 mls @ 100 mls/hr IV ASDIRECTED GUERLINE Last Admin: 08/11/16 02:25 Dose: 100 mls/hr Magnesium Hydroxide (Milk Of Magnesia) 30 ml PO ONETIME ONE Stop: 08/10/16 16:54 Last Admin: 08/10/16 19:49 Dose: 30 ml Sodium Chloride (Saline Flush) 10 ml FLUSH ASDIRECTED PRN PRN Reason: Keep Vein Open Last Admin: 08/13/16 07:24 Dose: 10 ml - Exam General: alert, oriented HEENT: Pupils equal, Pupils reactive, EOMI, Mucous membr. moist/pink Neck: supple Lungs: Clear to auscultation, Normal respiratory effort, Rhonchi (bases) Cardiovascular: regular rate, regular rhythm Abdomen: bowel sounds present, soft, no tenderness, no distension Back Exam: full range of motion Extremities: no edema Skin: warm, dry, intact Neurological: no new focal deficit Psy/Mental Status: alert, normal affect, normal mood - Problem List & Annotations (1) Anemia SNOMED Code(s): 855580079 Code(s): D64.9 - ANEMIA, UNSPECIFIED Status: Acute Priority: High Current Visit: Yes Onset Date: ~08/13/16 Qualifiers: Anemia type: iron deficiency Iron deficiency anemia type: unspecified iron deficiency Qualified Code(s): D50.9 - Iron deficiency anemia, unspecified (2) Generalized weakness SNOMED Code(s): 95258414 Code(s): R53.1 - WEAKNESS Status: Acute Priority: Medium Current Visit : Yes Annotation/Comment:: 08-10-16- PT/OT consult ordered for strengthening Jul PT OT to assess (3) Humerus fracture SNOMED Code(s): 62811137 Code(s): S42.309A - UNSP FRACTURE OF SHAFT OF HUMERUS, UNSP ARM, INIT Status: Acute Priority: Low Current Visit: Yes Qualifiers: Encounter type: subsequent encounter Humerus Location: shaft Fracture type: closed Fracture morphology: transverse Fracture alignment: nondisplaced Laterality: right Fracture healing: with routine healing Qualified Code(s): S42.324D - Nondisplaced transverse fracture of shaft of humerus, right arm, subsequent encounter for fracture with routine healing Annotation/Comment:: [id number]- r/t to fall. Seen in [facility] ED on 08-08-19. Patient's right arm in immobilizer. -july maintains immobilization (4) Confusion SNOMED Code(s): 775472062 Code(s): R41.0 - DISORIENTATION, UNSPECIFIED Status: Chronic Priority: Medium Current Visit: Yes Annotation/Comment:: 08-10-16 forgetful taking medications and routine compliance issues. Forgetful with remote events. Patient 's home is stated as being a possible risk at this time. (5) Nicotine dependence SNOMED Code(s): 38623767 Code(s): F17.200 - NICOTINE DEPENDENCE, UNSPECIFIED, UNCOMPLICATED Status: Acute Priority: Medium Current Visit: Yes Qualifiers: Nicotine product type: cigarettes Substance use status: uncomplicated Qualified Code(s): F17.210 - Nicotine dependence, cigarettes, uncomplicated Annotation/Comment:: 08-10-16- nicotine patch ordered for patient as she is a current every day smoker. 1/2 to 1 pack daily. -july patch going well noted some stimulation from this but no urge to smoke (6) Comfort measures only status SNOMED Code(s): 45466849743316 Code(s): Z51.5 - ENCOUNTER FOR PALLIATIVE CARE Status: Acute Priority: Medium Current Visit: Yes Annotation/Comment:: -july Discussed component of home health cares will have social media strategist discussed. (7) Prolapse of bladder SNOMED Code(s): 878725976 Code(s): GWL1176 - Status: Acute Priority: Low Current Visit: Yes Annotation/Comment:: 08-10-2016 Noted on examination- denies need for assessment - Problem List Review Problem List Initiated/Reviewed/Updated: Yes - Assessment Assessment:: Patient admitted and treated for anemia, weakness, mental status changes. Improving. Hgb 9.0 today. TIBC 367. % Saturation 2.99 Negative for occult blood x2 Significant concerns as to patient's safety at home given baseline confusion issues and compliance with medications. PT and OT are working with patient. When asked during visit about therapy, patient denied seeing PT and OT. Patient very much against going on swing bed status tomorrow for further strengthening and work with PT and OT. She said that her daughter is coming into town for the weekend and patient wants out to be with daughter. Patient denies feeling weak/unsafe given that her right arm is broken and in sling. - Plan Plan:: See above. Decision will need to be made concerning Swing Bed stay given patients issues. PT, OT, and Automatic Tire Tester will need to weigh in. Again, there are concerns as to patient returning to current living situation as far as safety and health. Today 13 August 2016 symptoms states she is not willing to pursue swing bed status and will be going home for private vehicle with a friend able to pick her up this afternoon. She does improve significantly in her strength secondary of transfusion. We did discuss aspects a home health with therapy would be second intention as preference for swing bed status which she declines as her daughter is coming to visit this weekend. She does speak a friend picking her up at 3:00 when she finishes her shift at [facility], I do believe this is the same person that stated that the home was not in ideal condition for her safety with the weakness and the fractured right humerus. This is of concern to me to discharge with conflicting stories although verification of the home has not been fully clarified. This individual is unable to pick her up for transfer home at time of discharge. We did delay the time four discharge until finding a good unit agapito which is confirmed to me at 1330 hours. Strong encouragement for followup, will need to maintain home on status for [facility]. And will pursue therapy there until strong enough to be discharged from home services. She is in agreement as with this aspect did meet qualifications for oxygen with 83% on saturation 88% dropping down to seventy-eight with oxygen prior to ambulation. 84% room air for nighttime desaturation status.
== END 2016-08-13 15:57 | disposition home health service (06) | DRG 812 ==
LOC: LL.CLIN 14:45 → LL.MS 16:40
PROVIDERS: ADMIT Nurse Practitioner; ATTEND Internal Medicine
PROC: 30233N1 Transfusion of Nonautologous Red Blood Cells into Peripheral Vein, Percutaneous Approach (ICD-10-PCS; principal; 2016-08-10)
DX: D64.9 Anemia, unspecified (principal); S42.301A Unspecified fracture of shaft of humerus, right arm, initial encounter for closed fracture; D50.9 Iron deficiency anemia, unspecified; R53.1 Weakness; W19.XXXA Unspecified fall, initial encounter; R41.0 Disorientation, unspecified; F32.9 Major depressive disorder, single episode, unspecified; F41.9 Anxiety disorder, unspecified; F17.200 Nicotine dependence, unspecified, uncomplicated; Z51.5 Encounter for palliative care; N81.10 Cystocele, unspecified; Z79.899 Other long term (current) drug therapy
CPT/HCPCS: 36415; 36430; 80048; 80053; 81001; 82270; 83540; 83550; 84443; 85025; 86850; 86900; 86901; 86920; 86922; 87086; 97161-GP; 97165-GO; 97535-GO; A9270-GY; J1940; J7030; J7050; P9016

== ENCOUNTER 2016-08-14 13:29 | Inpatient (IN) | payer MEDICARE, MEDICAID ==
--- NOTE | 2016-08-14 15:38 | PCM.HP ---
H&P History of Present Illness - General Date of Service: 08/14/16 Source of Information: Patient, Old records History Limitations: Reports: No limitations - History of Present Illness Initial Comments - Free Text/Narative: Patient returns today for swing bed admission as she was unable to safely provide self-care at her residence. Home health present today for assistance at which time patient acknowledged difficulty secondary of weakness and dysfunction worsened by right humerus fracture Onset of Symptoms: Reports: gradual Duration of Symptoms: Reports: Week(s): Location: Reports: upper extremity, right Quality: Reports: Ache Improves with: Reports: None, Immobilization Worsens with: Reports: None, Movement Associated Symptoms: Reports: no other symptoms, confusion Generalized Pain Score (Numeric/FACES): 1 - Related Data Allergies/Adverse Reactions: Allergies Allergy/AdvReac Type Severity Reaction Status Date / Time No Known Allergies Allergy Verified 08/08/16 17:49 Home Medications: Home Meds Etodolac 300 mg PO ASDIRECTED PRN 10/17/14 [History] Ferrous Sulfate 325 mg PO DAILY 10/17/14 [History] Omeprazole 20 mg PO BID 10/18/14 [History] ClonazePAM [KlonoPIN] 0.5 mg PO BID PRN 03/15/15 [History] PARoxetine [Paxil] 20 mg PO DAILY 03/15/15 [History] Acetaminophen [Tylenol] 650 mg PO Q6H PRN #0 tablet 08/13/16 [Rx] Acetaminophen/HYDROcodone [[place] 325-5 MG] 1 tab PO Q4HR PRN #0 tablet 08/13/16 [Rx] Nicotine [Habitrol] 21 mg TRDERM DAILY #30 patch 08/13/16 [Rx] Sennosides [Senna] 8.6 mg PO DAILY PRN #0 tablet 08/13/16 [Rx] Past Medical History Cardiovascular History: Reports: None (Patient denies) Respiratory History: Reports: None (patient denies, but is an active smoker) Gastrointestinal History: Reports: Other (see below) (previous bleeding ulcer) Genitourinary History: Reports: Other (see below) (prolapsed bladder) Other Genitourinary History: Bladder prolapse APPLICATION INTEGRATION ENGINEER History: Reports: Musculoskeletal History: Reports: Fracture (right humerus) Neurological History: Reports: None (patient denies) Psychiatric History: Reports: Anxiety, Depression Hematologic History: Reports: Anemia - Past Surgical History GI Surgical History: Reports: Appendectomy Musculoskeletal Surgical History: Reports: Shoulder surgery Social & Family History - Tobacco Use Smoking Status *Q: Current Every Day Smoker Years of Tobacco use: 25 Packs/Tins Daily: 0.5 Used Tobacco, but Quit: Yes Second Hand Smoke Exposure: No - Caffeine Use Caffeine Use: Reports: Coffee - Alcohol Use Days Per Week of Alcohol Use: 0 Number of Drinks Per Day: 0 Total Drinks Per Week: 0 - Recreational Drug Use Recreational Drug Use: No Drug Use in Last 12 Months: No H&P Review of Systems - Review of Systems: Review Of Systems: See Below General: Reports: no symptoms HEENT: Reports: no symptoms Pulmonary: Reports: no symptoms Cardiovascular: Reports: no symptoms Gastrointestinal: Reports: No symptoms Genitourinary: Reports: no symptoms Musculoskeletal: Reports: no symptoms Skin: Reports: no symptoms Psychiatric: Reports: no symptoms Neurological: Reports: confusion Hematologic/Lymphatic: Reports: anemia Immunologic: Reports: no symptoms Exam - Exam Exam: See Below - Vital Signs Vital Signs: Last Vital Signs Temp 37.0 C 08/14/16 14:41 Pulse 65 08/14/16 14:41 Resp 16 08/14/16 14:41 BP 133/81 08/14/16 14:41 Pulse Ox 88 L 08/14/16 14:41 Weight: 74.344 kg - Exam Quality Assessment: supplemental oxygen General: alert, oriented, 4 HEENT: Conjunctiva clear, EACs clear, EOMI, Hearing intact, Mucosa moist & pink , Nares patent, Normal nasal septum, Posterior pharynx clear, PERRLA Neck: supple, trachea midline Lungs: Clear to auscultation, Normal respiratory effort Cardiovascular: regular rate, regular rhythm Abdomen: normal bowel sounds, soft (Female) Exam: Deferred Rectal (Female) Exam: Deferred Extremities: normal pulses, other (Right upper extremity [id number]) Skin: warm, dry, intact Neuro Extensive - Mental Status: alert, oriented x3, normal mood/affect, normal cognition Psychiatric: alert, normal affect, normal mood *Q Meaningful Use (ADM) - VTE *Q VTE Criteria *Q: - Stroke *Q Stroke Criteria *Q: - AMI *Q AMI Criteria *Q: - Problem List (1) Humeral shaft fracture SNOMED Code(s): 55517944 ICD Code: S42.309A - UNSP FRACTURE OF SHAFT OF HUMERUS, UNSP ARM, INIT Status: Acute Current Visit: Yes (2) Anemia SNOMED Code(s): 453373998 ICD Code: D64.9 - ANEMIA, UNSPECIFIED Status: Acute Priority: High Current Visit: No Onset Date: ~08/13/16 Problem Details: 08-10-16 -hgb in clinic was 7.2, 2 units of blood ordered, will re-check CBC in AM -july hemoglobin shows improvement, states appetite is better and feels better. Advised we will repeat CBC over the next 24-48 hours also will do stool test for occult blood as it was negative in clinic setting Qualifiers: Anemia type: iron deficiency (3) Anxiety SNOMED Code(s): 58390645 ICD Code: F41.9 - ANXIETY DISORDER, UNSPECIFIED Status: Acute Current Visit: No (4) COPD (chronic obstructive pulmonary disease) SNOMED Code(s): 32033911 ICD Code: J44.9 - CHRONIC OBSTRUCTIVE PULMONARY DISEASE, UNSPECIFIED Status : Acute Priority: Medium Current Visit: No Qualifiers: (5) Comfort measures only status SNOMED Code(s): 57281813239185 ICD Code: Z51.5 - ENCOUNTER FOR PALLIATIVE CARE Status: Acute Priority: Medium Current Visit: No (6) Constipation SNOMED Code(s): 40113083 ICD Code: K59.00 - CONSTIPATION, UNSPECIFIED Status: Acute Current Visit : No (7) Generalized weakness SNOMED Code(s): 54904254 ICD Code: R53.1 - WEAKNESS Status: Acute Priority: Medium Current Visit : No Problem Details: 08-10-16- PT/OT consult ordered for strengthening Jul PT OT to assess (8) Prolapse of bladder SNOMED Code(s): 925446345 ICD Code: OFL7080 - Status: Acute Priority: Low Current Visit: No Problem Details: 08-10-2016 Noted on examination- denies need for assessment (9) Right humeral fracture SNOMED Code(s): 37117990 ICD Code: S42.301A - UNSP FRACTURE OF SHAFT OF HUMERUS, RIGHT ARM, INIT Status: Acute Current Visit: No (10) Confusion SNOMED Code(s): 375939110 ICD Code: R41.0 - DISORIENTATION, UNSPECIFIED Status: Chronic Priority: Low Current Visit: No Problem Details: 08-10-16 forgetful taking medications and routine compliance issues. Forgetful with remote events. Patient's home is stated as being a possible risk at this time. Problem List Initiated/Reviewed/Updated: Yes Assessment/Plan Comment:: Admitted to swing bed status today secondary inability to provide self-care with assessment for home care today in agreeance of this change. General debility weakness of the patient is now accepted by her with recognition that she needs vigorous PT OT for strengthening to allow safe residence at her home. Her daughter arrived last evening and is also in agreeance of this with changes being made in the upcoming future for the improvement and safety in her apartment. X-ray of the right humerus to confirm positioning an early stages of healing will be performed on Wednesday, 19 August 2016, this would be ten days post injury. We will also obtain PA and if possible lateral but at least at PA to confirm/rule out other anomalies other than COPD for her desaturation and oxygen dependency. We will consider implementation of long-acting bronchodilators and pulmonary toileting in the prophylactic manner as applicable. She seems to be doing quite well with supplemental oxygen at this time. Aggressive physical therapy as well as occupational therapy will be implemented and once stability/improvement of her strength was obtained consideration for discharge would be considered. We will monitor hemoglobin next week to confirm stability as well as repeating her iron level to see if she is absorbing any of the supplemental iron is given since her admission. If not consideration for an approval for IV iron would be considered if oral is not beneficial in raising her level.
[2016-08-14] MEDS: Ferrous Sulfate 325 MG Tab PO SCH (17:29)
[2016-08-14] MEDS: Omeprazole 20 MG Cap.CR PO SCH (17:29)
[2016-08-14] MEDS: Nicotine 14 MG/24 Hr Patch TRDERM SCH (17:29)
[2016-08-14] MEDS: PARoxetine 20 MG Tab PO SCH (17:29)
[2016-08-15] MEDS: Nicotine 14 MG/24 Hr Patch TRDERM SCH (07:12)
[2016-08-15] MEDS: PARoxetine 20 MG Tab PO SCH (07:12)
[2016-08-15] MEDS: Ferrous Sulfate 325 MG Tab PO SCH (07:12)
[2016-08-15] MEDS: Omeprazole 20 MG Cap.CR PO SCH ×2 (07:12→17:44)
[2016-08-15] MEDS: Acetaminophen 325 MG Tab PO PRN (07:14)
[2016-08-15] MEDS: Acetaminophen/HYDROcodone 325-5 MG Tab PO PRN ×3 (09:03→23:56)
[2016-08-15] MEDS: Sennosides 8.6 MG Tab PO PRN (10:27)
[2016-08-16] MEDS: Sennosides 8.6 MG Tab PO PRN (07:24)
[2016-08-16] MEDS: Ferrous Sulfate 325 MG Tab PO SCH (07:24)
[2016-08-16] MEDS: Nicotine 14 MG/24 Hr Patch TRDERM SCH (07:24)
[2016-08-16] MEDS: PARoxetine 20 MG Tab PO SCH (07:24)
[2016-08-16] MEDS: Omeprazole 20 MG Cap.CR PO SCH ×2 (07:24→16:58)
[2016-08-16] MEDS: Acetaminophen/HYDROcodone 325-5 MG Tab PO PRN ×2 (08:21→15:56)
[2016-08-16] MEDS: guaiFENesin/Dextromethorphan 100-10 MG/5 ML Soln 10 ML Cup PO PRN ×2 (08:21→17:36)
[2016-08-16] MEDS: Acetaminophen 325 MG Tab PO PRN (12:26)
[2016-08-16] MEDS: ClonazePAM 0.5 MG Tab PO PRN (21:45)
[2016-08-17] MEDS: Omeprazole 20 MG Cap.CR PO SCH ×2 (07:39→17:22)
[2016-08-17] MEDS: PARoxetine 20 MG Tab PO SCH (07:40)
[2016-08-17] MEDS: Ferrous Sulfate 325 MG Tab PO SCH (07:40)
[2016-08-17] MEDS: Nicotine 14 MG/24 Hr Patch TRDERM SCH (07:40)
[2016-08-17] MEDS: Acetaminophen 325 MG Tab PO PRN (07:42)
[2016-08-17] MEDS: Sennosides 8.6 MG Tab PO PRN (13:16)
--- NOTE | 2016-08-17 13:49 | PCM.PN ---
- General Info Date of Service: 08/17/16 Functional Status: Reports: pain controlled - Review of Systems General: Reports: no symptoms HEENT: Reports: no symptoms Pulmonary: Reports: no symptoms Cardiovascular: Reports: no symptoms Gastrointestinal: Reports: Other (decreased stools, is getting urge to go.) Genitourinary: Reports: no symptoms Musculoskeletal: Reports: no symptoms Skin: Reports: no symptoms Neurological: Reports: no symptoms Psychiatric: Reports: no symptoms - Patient Data Vitals - most recent: Last Vital Signs Temp 36.8 C 08/17/16 08:00 Pulse 59 L 08/17/16 08:00 Resp 16 08/17/16 08:00 BP 119/75 08/17/16 08:00 Pulse Ox 94 L 08/17/16 08:00 Weight - most recent: 74.344 kg I&O - last 24 hours: Intake & Output 08/16/16 08/17/16 08/17/16 22:59 06:59 14:59 Intake Total 200 300 400 Balance 200 300 400 Med Orders - Current: Current Medications Acetaminophen (Tylenol) 650 mg PO Q6H PRN PRN Reason: Pain Last Admin: 08/17/16 07:42 Dose: 650 mg Acetaminophen/Hydrocodone Bitart ([place] 325-5 Mg) 1 tab PO Q4HR PRN PRN Reason: Pain Last Admin: 08/16/16 15:56 Dose: 1 tab Clonazepam (Klonopin) 0.5 mg PO BID PRN PRN Reason: Anxiety Last Admin: 08/16/16 21:45 Dose: 0.5 mg Etodolac (Lodine) 300 mg PO TID PRN PRN Reason: back pain Ferrous Sulfate (Ferrous Sulfate) 325 mg PO DAILY [facility] Last Admin: 08/17/16 07:40 Dose: 325 mg Guaifenesin/Dextromethorphan (Robitussin Dm) 10 ml PO Q4H PRN PRN Reason: Cough Last Admin: 08/16/16 17:36 Dose: 10 ml Lactobacillus Rhamnosus (Culturelle) 1 cap PO BID [facility] Miscellaneous Information (Remove Patch) 1 ea TRDERM DAILY [facility] Last Admin: 08/17/16 07:41 Dose: 1 ea Nicotine (Habitrol) 14 mg TRDERM DAILY [facility] Last Admin: 08/17/16 07:40 Dose: 14 mg Omeprazole (Omeprazole) 20 mg PO BIDAC [facility] Last Admin: 08/17/16 07:39 Dose: 20 mg Paroxetine HCl (Paxil) 20 mg PO DAILY [facility] Last Admin: 08/17/16 07:40 Dose: 20 mg Senna (Senna) 8.6 mg PO DAILY PRN PRN Reason: Constipation Last Admin: 08/17/16 13:16 Dose: 8.6 mg - Exam Quality Assessment: supplemental oxygen General: alert, oriented HEENT: Pupils equal, Pupils reactive, EOMI, Mucous membr. moist/pink Neck: supple Lungs: Clear to auscultation, Normal respiratory effort Cardiovascular: regular rate, regular rhythm Abdomen: bowel sounds present, soft Extremities: edema (right hand ring is snug. non-compromised) Skin: warm, dry, intact Neurological: no new focal deficit Psy/Mental Status: alert, normal affect, normal mood - Problem List & Annotations (1) Humeral shaft fracture SNOMED Code(s): 33939097 Code(s): S42.309A - UNSP FRACTURE OF SHAFT OF HUMERUS, UNSP ARM, INIT Status: Acute Priority: High Current Visit: Yes Qualifiers: Encounter type: sequela Fracture type: closed Laterality: right (2) Anemia SNOMED Code(s): 305811948 Code(s): D64.9 - ANEMIA, UNSPECIFIED Status: Acute Priority: High Current Visit: No Onset Date: ~08/13/16 Qualifiers: Anemia type: iron deficiency Annotation/Comment:: 08-10-16 -hgb in clinic was 7.2, 2 units of blood ordered, will re-check CBC in AM Twenty-july hemoglobin shows improvement, states appetite is better and feels better. Advised we will repeat CBC over the next 24-48 hours also will do stool test for occult blood as it was negative in clinic setting (3) Anxiety SNOMED Code(s): 63707483 Code(s): F41.9 - ANXIETY DISORDER, UNSPECIFIED Status: Acute Priority: Medium Current Visit: No (4) COPD (chronic obstructive pulmonary disease) SNOMED Code(s): 40359153 Code(s): J44.9 - CHRONIC OBSTRUCTIVE PULMONARY DISEASE, UNSPECIFIED Status : Acute Priority: Medium Current Visit: No Qualifiers: (5) Comfort measures only status SNOMED Code(s): 42753090479026 Code(s): Z51.5 - ENCOUNTER FOR PALLIATIVE CARE Status: Acute Priority: Medium Current Visit: No (6) Constipation SNOMED Code(s): 10383646 Code(s): K59.00 - CONSTIPATION, UNSPECIFIED Status: Acute Priority: Medium Current Visit: No Qualifiers: Constipation type: slow transit constipation Qualified Code(s): K59.01 - Slow transit constipation (7) Generalized weakness SNOMED Code(s): 76123669 Code(s): R53.1 - WEAKNESS Status: Acute Priority: Medium Current Visit : No Annotation/Comment:: 08-10-16- PT/OT consult ordered for strengthening Jul PT OT to assess (8) Prolapse of bladder SNOMED Code(s): 531859053 Code(s): VIH1867 - Status: Acute Priority: Low Current Visit: No Annotation/Comment:: 08-10-2016 Noted on examination- denies need for assessment (9) Right humeral fracture SNOMED Code(s): 16676995 Code(s): S42.301A - UNSP FRACTURE OF SHAFT OF HUMERUS, RIGHT ARM, INIT Status: Acute Priority: High Current Visit: No Qualifiers: Encounter type: sequela Fracture type: closed Fracture alignment: nondisplaced (10) Confusion SNOMED Code(s): 168430677 Code(s): R41.0 - DISORIENTATION, UNSPECIFIED Status: Chronic Priority: Low Current Visit: No Annotation/Comment:: 08-17-2016 improvement of focus and concentration - Problem List Review Problem List Initiated/Reviewed/Updated: Yes - My Orders Last 24 Hours: My Active Orders 08/17/16 13:26 OT Evaluation and Treatment [CONS] Routine 08/17/16 18:00 Lactobacillus Rhamnosus GG [Culturelle] 1 cap PO BID 08/19/16 05:11 Chest 2V [CR] Routine Humerus Rt [CR] Routine HEMOGLOBIN/HEMATOCRIT,HH [HEME] Routine - Plan Plan:: Admitted to swing bed status today secondary inability to provide self-care with assessment for home care today in agreeance of this change. General debility weakness of the patient is now accepted by her with recognition that she needs vigorous PT OT for strengthening to allow safe residence at her home. Her daughter arrived last evening and is also in agreeance of this with changes being made in the upcoming future for the improvement and safety in her apartment. X-ray of the right humerus to confirm positioning an early stages of healing will be performed on Wednesday, 19 August 2016, this would be ten days post injury. We will also obtain PA and if possible lateral but at least at PA to confirm/rule out other anomalies other than COPD for her desaturation and oxygen dependency. We will consider implementation of long-acting bronchodilators and pulmonary toileting in the prophylactic manner as applicable. She seems to be doing quite well with supplemental oxygen at this time. Aggressive physical therapy as well as occupational therapy will be implemented and once stability/improvement of her strength was obtained consideration for discharge would be considered. We will monitor hemoglobin next week to confirm stability as well as repeating her iron level to see if she is absorbing any of the supplemental iron is given since her admission. If not consideration for an approval for IV iron would be considered if oral is not beneficial in raising her level. 17 Aug 2016; Weekend went well, improved mentation and concentration. Will continued PT-OT and upcoming radiology and lab.
[2016-08-17] MEDS: Lactobacillus Rhamnosus GG (Probiotic) Cap PO SCH (17:22)
[2016-08-17] MEDS: ClonazePAM 0.5 MG Tab PO PRN (20:35)
[2016-08-17] MEDS: Acetaminophen/HYDROcodone 325-5 MG Tab PO PRN (21:27)
[2016-08-18] MEDS: Omeprazole 20 MG Cap.CR PO SCH ×2 (08:06→17:21)
[2016-08-18] MEDS: Lactobacillus Rhamnosus GG (Probiotic) Cap PO SCH ×2 (08:06→17:22)
[2016-08-18] MEDS: Ferrous Sulfate 325 MG Tab PO SCH (08:06)
[2016-08-18] MEDS: PARoxetine 20 MG Tab PO SCH (08:07)
[2016-08-18] MEDS: Nicotine 14 MG/24 Hr Patch TRDERM SCH (08:07)
[2016-08-18] MEDS: Acetaminophen 325 MG Tab PO PRN (08:42)
[2016-08-18] MEDS: ClonazePAM 0.5 MG Tab PO PRN (15:21)
[2016-08-19] MEDS: Lactobacillus Rhamnosus GG (Probiotic) Cap PO SCH ×2 (07:36→17:34)
[2016-08-19] MEDS: Omeprazole 20 MG Cap.CR PO SCH ×2 (07:36→17:33)
[2016-08-19] MEDS: Nicotine 14 MG/24 Hr Patch TRDERM SCH (07:37)
[2016-08-19] MEDS: Ferrous Sulfate 325 MG Tab PO SCH (07:37)
[2016-08-19] MEDS: PARoxetine 20 MG Tab PO SCH (07:39)
[2016-08-19] MEDS: Acetaminophen/HYDROcodone 325-5 MG Tab PO PRN ×2 (07:57→22:52)
[2016-08-19] MEDS: ClonazePAM 0.5 MG Tab PO PRN (13:11)
[2016-08-20] MEDS: Omeprazole 20 MG Cap.CR PO SCH ×2 (08:35→17:48)
[2016-08-20] MEDS: Lactobacillus Rhamnosus GG (Probiotic) Cap PO SCH ×2 (08:35→17:49)
[2016-08-20] MEDS: Nicotine 14 MG/24 Hr Patch TRDERM SCH (08:36)
[2016-08-20] MEDS: Ferrous Sulfate 325 MG Tab PO SCH (08:36)
[2016-08-20] MEDS: PARoxetine 20 MG Tab PO SCH (08:38)
[2016-08-20] MEDS: Acetaminophen 325 MG Tab PO PRN (08:41)
--- NOTE | 2016-08-20 09:49 | PCM.SN ---
- Free Text/Narrative Note: Discussed radiology report good positioning of the humerus fracture. Discussed hemoglobin stability with Naila acknowledges persistent use of iron- containing products. Developed some sinus drainage Will review x-ray in 2-3 weeks to confirm positioning as long as there is no difficulties encountered. Will repeat hemoglobin and iron prior to discharge to confirm or iron stores and stability in hemoglobin as occult stools were negative during hospitalization.
[2016-08-20] MEDS: guaiFENesin 600 MG Tab.ER PO SCH ×2 (10:08→17:49)
[2016-08-20] MEDS: guaiFENesin/Dextromethorphan 100-10 MG/5 ML Soln 10 ML Cup PO PRN ×3 (11:45→20:05)
[2016-08-20] MEDS: ClonazePAM 0.5 MG Tab PO PRN (13:33)
[2016-08-20] MEDS: Acetaminophen/HYDROcodone 325-5 MG Tab PO PRN (20:04)
[2016-08-21] MEDS: guaiFENesin/Dextromethorphan 100-10 MG/5 ML Soln 10 ML Cup PO PRN ×5 (03:55→23:06)
[2016-08-21] MEDS: Lactobacillus Rhamnosus GG (Probiotic) Cap PO SCH ×2 (07:44→17:33)
[2016-08-21] MEDS: Nicotine 14 MG/24 Hr Patch TRDERM SCH (07:44)
[2016-08-21] MEDS: Ferrous Sulfate 325 MG Tab PO SCH (07:44)
[2016-08-21] MEDS: Omeprazole 20 MG Cap.CR PO SCH ×2 (07:44→17:33)
[2016-08-21] MEDS: guaiFENesin 600 MG Tab.ER PO SCH ×2 (07:46→17:34)
[2016-08-21] MEDS: PARoxetine 20 MG Tab PO SCH (07:46)
[2016-08-21] MEDS: Acetaminophen 325 MG Tab PO PRN ×2 (07:46→14:28)
[2016-08-21] MEDS: Sennosides 8.6 MG Tab PO PRN (07:48)
[2016-08-21] MEDS: ClonazePAM 0.5 MG Tab PO PRN (12:09)
[2016-08-21] MEDS: Acetaminophen/HYDROcodone 325-5 MG Tab PO PRN ×2 (17:32→23:04)
[2016-08-22] MEDS: Acetaminophen/HYDROcodone 325-5 MG Tab PO PRN ×4 (04:03→23:14)
[2016-08-22] MEDS: Omeprazole 20 MG Cap.CR PO SCH ×2 (08:27→16:38)
[2016-08-22] MEDS: Nicotine 14 MG/24 Hr Patch TRDERM SCH (08:28)
[2016-08-22] MEDS: Ferrous Sulfate 325 MG Tab PO SCH (08:31)
[2016-08-22] MEDS: PARoxetine 20 MG Tab PO SCH (08:33)
[2016-08-22] MEDS: guaiFENesin 600 MG Tab.ER PO SCH ×2 (08:35→16:59)
[2016-08-22] MEDS: Lactobacillus Rhamnosus GG (Probiotic) Cap PO SCH ×2 (08:42→16:59)
[2016-08-22] MEDS: ClonazePAM 0.5 MG Tab PO PRN (12:43)
[2016-08-23] MEDS: Acetaminophen/HYDROcodone 325-5 MG Tab PO PRN ×2 (04:07→14:25)
[2016-08-23] MEDS: guaiFENesin/Dextromethorphan 100-10 MG/5 ML Soln 10 ML Cup PO PRN ×2 (06:53→22:19)
[2016-08-23] MEDS: Omeprazole 20 MG Cap.CR PO SCH ×2 (07:38→17:19)
[2016-08-23] MEDS: Lactobacillus Rhamnosus GG (Probiotic) Cap PO SCH ×2 (07:39→17:20)
[2016-08-23] MEDS: Nicotine 14 MG/24 Hr Patch TRDERM SCH (07:40)
[2016-08-23] MEDS: Ferrous Sulfate 325 MG Tab PO SCH (07:40)
[2016-08-23] MEDS: PARoxetine 20 MG Tab PO SCH (07:42)
[2016-08-23] MEDS: guaiFENesin 600 MG Tab.ER PO SCH ×2 (07:43→17:20)
[2016-08-23] MEDS: ClonazePAM 0.5 MG Tab PO PRN ×2 (08:41→20:59)
[2016-08-23] MEDS: Acetaminophen 325 MG Tab PO PRN (21:26)
[2016-08-24] MEDS: Omeprazole 20 MG Cap.CR PO SCH ×2 (07:13→17:35)
[2016-08-24] MEDS: Lactobacillus Rhamnosus GG (Probiotic) Cap PO SCH ×2 (07:13→17:36)
[2016-08-24] MEDS: Nicotine 14 MG/24 Hr Patch TRDERM SCH (07:14)
[2016-08-24] MEDS: Ferrous Sulfate 325 MG Tab PO SCH (07:14)
[2016-08-24] MEDS: PARoxetine 20 MG Tab PO SCH (07:19)
[2016-08-24] MEDS: guaiFENesin 600 MG Tab.ER PO SCH ×2 (07:19→17:36)
[2016-08-24] MEDS: Acetaminophen/HYDROcodone 325-5 MG Tab PO PRN ×2 (07:21→21:14)
[2016-08-24] MEDS ORDERED: Albuterol/Ipratropium 3.0-0.5 MG/3 ML Neb Soln NEB ONE (11:40)
[2016-08-24] MEDS: ClonazePAM 0.5 MG Tab PO PRN (12:17)
[2016-08-24] MEDS ORDERED: Benzonatate 100 MG Cap PO PRN (13:55)
[2016-08-24] MEDS: Albuterol/Ipratropium 3.0-0.5 MG/3 ML Neb Soln NEB SCH ×2 (14:53→19:08)
[2016-08-24] MEDS ORDERED: Calcium Carbonate 750 MG Tab.Chew PO PRN (14:56)
--- NOTE | 2016-08-24 17:12 | PCM.PN ---
- General Info Date of Service: 08/24/16 Functional Status: Reports: pain controlled - Review of Systems General: Reports: other (cough low o2 sats) Pulmonary: Reports: cough Cardiovascular: Reports: no symptoms Gastrointestinal: Reports: No symptoms Genitourinary: Reports: no symptoms Musculoskeletal: Reports: no symptoms Skin: Reports: no symptoms Neurological: Reports: no symptoms Psychiatric: Reports: depression (due to decreased function for therap[y, "Want to get strongr") - Patient Data Vitals - most recent: Last Vital Signs Temp 36.4 C 08/24/16 08:00 Pulse 72 08/24/16 08:00 Resp 24 H 08/24/16 08:00 BP 102/58 L 08/24/16 08:00 Pulse Ox 87 L 08/24/16 08:00 Weight - most recent: 70.2 kg Med Orders - Current: Current Medications Acetaminophen (Tylenol) 650 mg PO Q6H PRN PRN Reason: Pain Last Admin: 08/23/16 21:26 Dose: 650 mg Acetaminophen/Hydrocodone Bitart ([place] 325-5 Mg) 1 tab PO Q4HR PRN PRN Reason: Pain Last Admin: 08/24/16 07:21 Dose: 1 tab Albuterol/Ipratropium (Duoneb 3.0-0.5 Mg/3 Ml) 3 ml NEB Q6HRRT [facility] Last Admin: 08/24/16 14:53 Dose: 3 ml Benzonatate (Tessalon Perles) 200 mg PO TID PRN PRN Reason: Cough Calcium Carbonate/Glycine (Tums Extra Strength) 750 mg PO ASDIRECTED PRN PRN Reason: Indigestion Last Admin: 08/24/16 15:12 Dose: 750 mg Clonazepam (Klonopin) 0.5 mg PO BID PRN PRN Reason: Anxiety Last Admin: 08/24/16 12:17 Dose: 0.5 mg Etodolac (Lodine) 300 mg PO TID PRN PRN Reason: back pain Ferrous Sulfate (Ferrous Sulfate) 325 mg PO DAILY [facility] Last Admin: 08/24/16 07:14 Dose: 325 mg Guaifenesin (Mucinex) 600 mg PO BID [facility] Last Admin: 08/24/16 07:19 Dose: 600 mg Guaifenesin/Dextromethorphan (Robitussin Dm) 10 ml PO Q4H PRN PRN Reason: Cough Last Admin: 08/23/16 22:19 Dose: 10 ml Lactobacillus Rhamnosus (Culturelle) 1 cap PO BID [facility] Last Admin: 08/24/16 07:13 Dose: 1 cap Miscellaneous Information (Remove Patch) 1 ea TRDERM DAILY [facility] Last Admin: 08/24/16 07:19 Dose: 1 ea Nicotine (Habitrol) 7 mg TRDERM DAILY [facility] Omeprazole (Omeprazole) 20 mg PO BIDAC [facility] Last Admin: 08/24/16 07:13 Dose: 20 mg Paroxetine HCl (Paxil) 20 mg PO DAILY [facility] Last Admin: 08/24/16 07:19 Dose: 20 mg Senna (Senna) 8.6 mg PO DAILY PRN PRN Reason: Constipation Last Admin: 08/21/16 07:48 Dose: 8.6 mg Discontinued Medications Albuterol/Ipratropium (Duoneb 3.0-0.5 Mg/3 Ml) 3 ml NEB ONETIME ONE Stop: 08/24/16 11:41 Last Admin: 08/24/16 11:45 Dose: 3 ml Nicotine (Habitrol) 14 mg TRDERM DAILY [facility] Last Admin: 08/24/16 07:14 Dose: 14 mg - Exam General: alert, oriented, cooperative, no acute distress HEENT: Pupils equal, Pupils reactive, EOMI, Mucous membr. moist/pink Neck: supple Lungs: Decreased breath sounds (These reasons basis) Cardiovascular: regular rate, regular rhythm Abdomen: bowel sounds present (Female) Exam: Deferred Extremities: no edema - Problem List & Annotations (1) Humeral shaft fracture SNOMED Code(s): 22630162 Code(s): S42.309A - UNSP FRACTURE OF SHAFT OF HUMERUS, UNSP ARM, INIT Status: Acute Priority: High Current Visit: Yes Qualifiers: Encounter type: sequela Fracture type: closed Laterality: right (2) Anemia SNOMED Code(s): 967063806 Code(s): D64.9 - ANEMIA, UNSPECIFIED Status: Acute Priority: High Current Visit: No Onset Date: ~08/13/16 Qualifiers: Anemia type: iron deficiency Annotation/Comment:: 08-10-16 -hgb in clinic was 7.2, 2 units of blood ordered, will re-check CBC in AM Twenty-july hemoglobin shows improvement, states appetite is better and feels better. Advised we will repeat CBC over the next 24-48 hours also will do stool test for occult blood as it was negative in clinic setting (3) Anxiety SNOMED Code(s): 12316274 Code(s): F41.9 - ANXIETY DISORDER, UNSPECIFIED Status: Acute Priority: Medium Current Visit: Yes Annotation/Comment:: U. bleeding she was somewhat depressed does oxygen levels restricted her full compliance with physical therapy today (4) COPD (chronic obstructive pulmonary disease) SNOMED Code(s): 82605138 Code(s): J44.9 - CHRONIC OBSTRUCTIVE PULMONARY DISEASE, UNSPECIFIED Status : Acute Priority: Medium Current Visit: Yes Qualifiers: COPD type: emphysema (5) Comfort measures only status SNOMED Code(s): 91503916690913 Code(s): Z51.5 - ENCOUNTER FOR PALLIATIVE CARE Status: Acute Priority: Medium Current Visit: No (6) Constipation SNOMED Code(s): 23636727 Code(s): K59.00 - CONSTIPATION, UNSPECIFIED Status: Acute Priority: Medium Current Visit: No Qualifiers: Constipation type: slow transit constipation Qualified Code(s): K59.01 - Slow transit constipation (7) Generalized weakness SNOMED Code(s): 82782064 Code(s): R53.1 - WEAKNESS Status: Acute Priority: Medium Current Visit : No Annotation/Comment:: 08-10-16- PT/OT consult ordered for strengthening Jul PT OT to assess (8) Prolapse of bladder SNOMED Code(s): 344138385 Code(s): WSQ9945 - Status: Acute Priority: Low Current Visit: Yes Annotation/Comment:: 08-10-2016 Noted on examination- denies need for assessment (9) Right humeral fracture SNOMED Code(s): 20741514 Code(s): S42.301A - UNSP FRACTURE OF SHAFT OF HUMERUS, RIGHT ARM, INIT Status: Acute Priority: High Current Visit: Yes Qualifiers: Encounter type: sequela Fracture type: closed Fracture alignment: nondisplaced (10) Confusion SNOMED Code(s): 882909418 Code(s): R41.0 - DISORIENTATION, UNSPECIFIED Status: Resolved Priority: Low Current Visit: No Annotation/Comment:: 08-17-2016 improvement of focus and concentration - Problem List Review Problem List Initiated/Reviewed/Updated: Yes - My Orders Last 24 Hours: My Active Orders 08/24/16 11:41 RT Aerosol Therapy [RC] ASDIRECTED 08/24/16 13:55 RT Aerosol Therapy [RC] ASDIRECTED Benzonatate [Tessalon Perles] 200 mg PO TID PRN 08/24/16 14:00 Albuterol/Ipratropium [DuoNeb 3.0-0.5 MG/3 ML] 3 ml NEB Q6HRRT 08/24/16 14:56 Calcium Carbonate [Tums Extra Strength] 750 mg PO ASDIRECTED PRN 08/25/16 08:00 Nicotine [Habitrol] 7 mg TRDERM DAILY 10/19/16 05:11 Chest 2V [CR] Routine - Plan Plan:: Admitted to swing bed status today secondary inability to provide self-care with assessment for home care today in agreeance of this change. General debility weakness of the patient is now accepted by her with recognition that she needs vigorous PT OT for strengthening to allow safe residence at her home. Her daughter arrived last evening and is also in agreeance of this with changes being made in the upcoming future for the improvement and safety in her apartment. X-ray of the right humerus to confirm positioning an early stages of healing will be performed on Wednesday, 19 August 2016, this would be ten days post injury. We will also obtain PA and if possible lateral but at least at PA to confirm/rule out other anomalies other than COPD for her desaturation and oxygen dependency. We will consider implementation of long-acting bronchodilators and pulmonary toileting in the prophylactic manner as applicable. She seems to be doing quite well with supplemental oxygen at this time. Aggressive physical therapy as well as occupational therapy will be implemented and once stability/improvement of her strength was obtained consideration for discharge would be considered. We will monitor hemoglobin next week to confirm stability as well as repeating her iron level to see if she is absorbing any of the supplemental iron is given since her admission. If not consideration for an approval for IV iron would be considered if oral is not beneficial in raising her level. 17 Aug 2016; Weekend went well, improved mentation and concentration. Will continued PT-OT and upcoming radiology and lab.
[2016-08-25] MEDS: Albuterol/Ipratropium 3.0-0.5 MG/3 ML Neb Soln NEB SCH ×4 (03:07→19:53)
[2016-08-25] MEDS: Omeprazole 20 MG Cap.CR PO SCH ×2 (07:42→17:53)
[2016-08-25] MEDS: Lactobacillus Rhamnosus GG (Probiotic) Cap PO SCH ×2 (07:43→17:46)
[2016-08-25] MEDS: Ferrous Sulfate 325 MG Tab PO SCH (07:43)
[2016-08-25] MEDS: PARoxetine 20 MG Tab PO SCH (07:44)
[2016-08-25] MEDS: guaiFENesin 600 MG Tab.ER PO SCH ×2 (07:44→17:46)
[2016-08-25] MEDS: Nicotine 7 MG/24 Hr Patch TRDERM SCH (09:16)
[2016-08-25] MEDS: Acetaminophen 325 MG Tab PO PRN ×2 (09:51→20:50)
[2016-08-25] MEDS: ClonazePAM 0.5 MG Tab PO PRN ×2 (09:55→21:59)
[2016-08-25] MEDS ORDERED: Magnesium Hydroxide 400 MG/5 ML Susp 30 ML Cup PO PRN (10:04)
[2016-08-26] MEDS: Albuterol/Ipratropium 3.0-0.5 MG/3 ML Neb Soln NEB SCH ×4 (01:58→19:09)
[2016-08-26] MEDS: Acetaminophen/HYDROcodone 325-5 MG Tab PO PRN ×3 (08:14→22:26)
[2016-08-26] MEDS: Lactobacillus Rhamnosus GG (Probiotic) Cap PO SCH ×2 (08:37→17:30)
[2016-08-26] MEDS: Omeprazole 20 MG Cap.CR PO SCH ×2 (08:37→17:30)
[2016-08-26] MEDS: Ferrous Sulfate 325 MG Tab PO SCH (08:38)
[2016-08-26] MEDS: PARoxetine 20 MG Tab PO SCH (08:39)
[2016-08-26] MEDS: guaiFENesin 600 MG Tab.ER PO SCH ×2 (08:39→17:31)
[2016-08-26] MEDS: Nicotine 7 MG/24 Hr Patch TRDERM SCH (08:40)
[2016-08-26] MEDS: ClonazePAM 0.5 MG Tab PO PRN ×3 (08:45→23:22)
--- NOTE | 2016-08-26 09:40 | PCM.SN ---
- Free Text/Narrative Note: Review of laboratory analysis shows a hemoglobin increase of 0.1, now with 9.7 white count is normal no evidence of action. States mild improvement in therapy please she was up at 0700. Will repeat in two weeks with iron evaluation to assure of proper absorption and efficacy of supplements.
[2016-08-26] MEDS ORDERED: Saliva Substitute Oral Spray 120 ML Bottle MUCMEM PRN (10:14)
[2016-08-26] MEDS: Acetaminophen 325 MG Tab PO PRN (16:50)
[2016-08-27] MEDS: Albuterol/Ipratropium 3.0-0.5 MG/3 ML Neb Soln NEB SCH ×4 (02:06→19:03)
[2016-08-27] MEDS: Omeprazole 20 MG Cap.CR PO SCH ×2 (08:19→17:37)
[2016-08-27] MEDS: Lactobacillus Rhamnosus GG (Probiotic) Cap PO SCH ×2 (08:19→17:37)
[2016-08-27] MEDS: Ferrous Sulfate 325 MG Tab PO SCH (08:20)
[2016-08-27] MEDS: Nicotine 7 MG/24 Hr Patch TRDERM SCH (08:20)
[2016-08-27] MEDS: guaiFENesin 600 MG Tab.ER PO SCH ×2 (08:21→17:38)
[2016-08-27] MEDS: PARoxetine 20 MG Tab PO SCH (08:21)
[2016-08-27] MEDS: Acetaminophen/HYDROcodone 325-5 MG Tab PO PRN ×3 (08:53→22:02)
[2016-08-27] MEDS: ClonazePAM 0.5 MG Tab PO PRN (13:31)
[2016-08-28] MEDS: Albuterol/Ipratropium 3.0-0.5 MG/3 ML Neb Soln NEB SCH ×4 (01:52→19:10)
[2016-08-28] MEDS: Lactobacillus Rhamnosus GG (Probiotic) Cap PO SCH ×2 (07:48→17:20)
[2016-08-28] MEDS: Omeprazole 20 MG Cap.CR PO SCH ×2 (07:48→17:19)
[2016-08-28] MEDS: Nicotine 7 MG/24 Hr Patch TRDERM SCH (07:50)
[2016-08-28] MEDS: Ferrous Sulfate 325 MG Tab PO SCH (07:50)
[2016-08-28] MEDS: PARoxetine 20 MG Tab PO SCH (07:52)
[2016-08-28] MEDS: guaiFENesin 600 MG Tab.ER PO SCH ×2 (07:52→17:20)
[2016-08-28] MEDS: Acetaminophen 325 MG Tab PO PRN (10:27)
[2016-08-28] MEDS: ClonazePAM 0.5 MG Tab PO PRN ×2 (10:28→22:52)
[2016-08-28] MEDS: guaiFENesin/Dextromethorphan 100-10 MG/5 ML Soln 10 ML Cup PO PRN (11:14)
[2016-08-28] MEDS ORDERED: Sodium Chloride 0.9% 10 ML Syringe FLUSH PRN (14:11)
--- NOTE | 2016-08-28 14:11 | PCM.PN ---
- General Info Date of Service: 08/28/16 Functional Status: Reports: pain controlled - Patient Data Vitals - most recent: Last Vital Signs Temp 36.4 C 08/24/16 08:00 Pulse 72 08/24/16 08:00 Resp 24 H 08/24/16 08:00 BP 102/58 L 08/24/16 08:00 Pulse Ox 87 L 08/24/16 08:00 Weight - most recent: 70.2 kg I&O - last 24 hours: Intake & Output 08/27/16 08/28/16 08/28/16 22:59 06:59 14:59 Intake Total 200 Balance 200 Lab Results last 24 hrs: Laboratory Results - last 24 hr 08/28/16 Range/Units 10:15 D-Dimer, Quantitative 1990 H (0-400) ng/mL Med Orders - Current: Current Medications Acetaminophen (Tylenol) 650 mg PO Q6H PRN PRN Reason: Pain Last Admin: 08/28/16 10:27 Dose: 650 mg Acetaminophen/Hydrocodone Bitart ([place] 325-5 Mg) 1 tab PO Q4HR PRN PRN Reason: Pain Last Admin: 08/27/16 22:02 Dose: 1 tab Albuterol/Ipratropium (Duoneb 3.0-0.5 Mg/3 Ml) 3 ml NEB Q6HRRT [facility] Last Admin: 08/28/16 13:45 Dose: 3 ml Benzonatate (Tessalon Perles) 200 mg PO TID PRN PRN Reason: Cough Calcium Carbonate/Glycine (Tums Extra Strength) 750 mg PO ASDIRECTED PRN PRN Reason: Indigestion Last Admin: 08/24/16 15:12 Dose: 750 mg Clonazepam (Klonopin) 0.5 mg PO BID PRN PRN Reason: Anxiety Last Admin: 08/28/16 10:28 Dose: 0.5 mg Etodolac (Lodine) 300 mg PO TID PRN PRN Reason: back pain Ferrous Sulfate (Ferrous Sulfate) 325 mg PO DAILY [facility] Last Admin: 08/28/16 07:50 Dose: 325 mg Guaifenesin (Mucinex) 600 mg PO BID [facility] Last Admin: 08/28/16 07:52 Dose: 600 mg Guaifenesin/Dextromethorphan (Robitussin Dm) 10 ml PO Q4H PRN PRN Reason: Cough Last Admin: 08/28/16 11:14 Dose: 10 ml Iopamidol (Isovue-370 (76%)) 100 ml IVPUSH ONETIME ONE Stop: 08/28/16 14:31 Lactobacillus Rhamnosus (Culturelle) 1 cap PO BID [facility] Last Admin: 08/28/16 07:48 Dose: 1 cap Magnesium Hydroxide (Milk Of Magnesia) 30 ml PO DAILY PRN PRN Reason: Constipation Last Admin: 08/25/16 10:15 Dose: 30 ml Miscellaneous Information (Remove Patch) 1 ea TRDERM DAILY [facility] Last Admin: 08/28/16 07:53 Dose: 1 ea Nicotine (Habitrol) 7 mg TRDERM DAILY [facility] Last Admin: 08/28/16 07:50 Dose: 7 mg Omeprazole (Omeprazole) 20 mg PO BIDAC [facility] Last Admin: 08/28/16 07:48 Dose: 20 mg Paroxetine HCl (Paxil) 20 mg PO DAILY [facility] Last Admin: 08/28/16 07:52 Dose: 20 mg Saliva Substitute (Partha-Stir Oral [place]) 1 ml MUCMEM ASDIRECTED PRN PRN Reason: Dryness Senna (Senna) 8.6 mg PO DAILY PRN PRN Reason: Constipation Last Admin: 08/21/16 07:48 Dose: 8.6 mg Discontinued Medications Albuterol/Ipratropium (Duoneb 3.0-0.5 Mg/3 Ml) 3 ml NEB ONETIME ONE Stop: 08/24/16 11:41 Last Admin: 08/24/16 11:45 Dose: 3 ml Nicotine (Habitrol) 14 mg TRDERM DAILY [facility] Last Admin: 08/24/16 07:14 Dose: 14 mg - Exam General: alert, oriented HEENT: Pupils equal Neck: supple Lungs: Clear to auscultation, Normal respiratory effort, Decreased breath sounds Cardiovascular: regular rate, regular rhythm Extremities: no edema Skin: warm, dry, intact Neurological: no new focal deficit Psy/Mental Status: alert Physical Findings Comments:: I discussed with Naila the aspect of elevated d-dimer in regards to the pleural effusion that was noted on her chest x-ray this past week. With her oxygen saturations remaining wall we need to do a CT scan of the chest pulmonary embolus rule out. I did discuss with her other factors that could cause an elevated d-dimer but at this time with her chronic use of oxygen and we need to make sure there is appropriate assessment and treatment if pulmonary embolus exists. We will this test performed today and get a stat read implement treatment if warranted. - Problem List & Annotations (1) Humeral shaft fracture SNOMED Code(s): 19830744 Code(s): S42.309A - UNSP FRACTURE OF SHAFT OF HUMERUS, UNSP ARM, INIT Status: Acute Priority: High Current Visit: Yes Qualifiers: Encounter type: sequela Fracture type: closed Laterality: right (2) Anemia SNOMED Code(s): 892362287 Code(s): D64.9 - ANEMIA, UNSPECIFIED Status: Acute Priority: High Current Visit: No Onset Date: ~08/13/16 Qualifiers: Anemia type: iron deficiency Annotation/Comment:: 08-10-16 -hgb in clinic was 7.2, 2 units of blood ordered, will re-check CBC in AM Twenty-july hemoglobin shows improvement, states appetite is better and feels better. Advised we will repeat CBC over the next 24-48 hours also will do stool test for occult blood as it was negative in clinic setting (3) Anxiety SNOMED Code(s): 50905223 Code(s): F41.9 - ANXIETY DISORDER, UNSPECIFIED Status: Acute Priority: Medium Current Visit: Yes Annotation/Comment:: U. bleeding she was somewhat depressed does oxygen levels restricted her full compliance with physical therapy today (4) COPD (chronic obstructive pulmonary disease) SNOMED Code(s): 65249143 Code(s): J44.9 - CHRONIC OBSTRUCTIVE PULMONARY DISEASE, UNSPECIFIED Status : Acute Priority: Medium Current Visit: Yes Qualifiers: COPD type: emphysema (5) Comfort measures only status SNOMED Code(s): 09828470520627 Code(s): Z51.5 - ENCOUNTER FOR PALLIATIVE CARE Status: Acute Priority: Medium Current Visit: No (6) Constipation SNOMED Code(s): 08840768 Code(s): K59.00 - CONSTIPATION, UNSPECIFIED Status: Acute Priority: Medium Current Visit: No Qualifiers: Constipation type: slow transit constipation Qualified Code(s): K59.01 - Slow transit constipation (7) Generalized weakness SNOMED Code(s): 16754753 Code(s): R53.1 - WEAKNESS Status: Acute Priority: Medium Current Visit : No Annotation/Comment:: 08-10-16- PT/OT consult ordered for strengthening Jul PT OT to assess (8) Prolapse of bladder SNOMED Code(s): 648463603 Code(s): WYV3454 - Status: Acute Priority: Low Current Visit: Yes Annotation/Comment:: 08-10-2016 Noted on examination- denies need for assessment (9) Right humeral fracture SNOMED Code(s): 95050395 Code(s): S42.301A - UNSP FRACTURE OF SHAFT OF HUMERUS, RIGHT ARM, INIT Status: Acute Priority: High Current Visit: Yes Qualifiers: Encounter type: sequela Fracture type: closed Fracture alignment: nondisplaced (10) D-dimer, elevated SNOMED Code(s): 567233173 Code(s): R79.89 - OTHER SPECIFIED ABNORMAL FINDINGS OF BLOOD CHEMISTRY Status: Acute Priority: High Current Visit: Yes Annotation/Comment:: CT PE protocol ordered - Problem List Review Problem List Initiated/Reviewed/Updated: Yes - My Orders Last 24 Hours: My Active Orders 08/28/16 10:04 Knee 3V Rt [CR] Routine 08/28/16 13:41 CTA Chest W WO Contrast [Ang Chest] [CT] Routine 08/28/16 14:30 Iopamidol [Isovue-370 (76%)] 100 ml IVPUSH ONETIME ONE 10/19/16 05:11 Chest 2V [CR] Routine - Plan Plan:: Admitted to swing bed status today secondary inability to provide self-care with assessment for home care today in agreeance of this change. General debility weakness of the patient is now accepted by her with recognition that she needs vigorous PT OT for strengthening to allow safe residence at her home. Her daughter arrived last evening and is also in agreeance of this with changes being made in the upcoming future for the improvement and safety in her apartment. X-ray of the right humerus to confirm positioning an early stages of healing will be performed on Wednesday, 19 August 2016, this would be ten days post injury. We will also obtain PA and if possible lateral but at least at PA to confirm/rule out other anomalies other than COPD for her desaturation and oxygen dependency. We will consider implementation of long-acting bronchodilators and pulmonary toileting in the prophylactic manner as applicable. She seems to be doing quite well with supplemental oxygen at this time. Aggressive physical therapy as well as occupational therapy will be implemented and once stability/improvement of her strength was obtained consideration for discharge would be considered. We will monitor hemoglobin next week to confirm stability as well as repeating her iron level to see if she is absorbing any of the supplemental iron is given since her admission. If not consideration for an approval for IV iron would be considered if oral is not beneficial in raising her level. 17 Aug 2016; Weekend went well, improved mentation and concentration. Will continued PT-OT and upcoming radiology and lab.
[2016-08-28] MEDS ORDERED: Iopamidol 755 Mg/ML 100 ML Bottle IVPUSH ONE (14:30)
[2016-08-28] MEDS ORDERED: Enoxaparin 80 MG/0.8 ML Syringe SUBCUT ONE (16:57)
--- NOTE | 2016-08-28 17:07 | PCM.SN ---
- Free Text/Narrative Note: Rad[facility] Scattered bilateral small pulmonary embolus with no saddle embolus, no large central embolus. Initiation 80 mg Lovenox twice a day starting now. Coumadin will be started seventy-two hours Wednesday evening the at 5 mg with PT/INR obtained the morning of the and titration of Coumadin and discontinuing of Lovenox pending therapeutic rate of PT/INR Test results and treatment modalities were explained to Naila, we also discussed the aspect of her hemoglobin being low and her past history of GI bleed that if for any reason she would know what bleeding, from her skin, urine, ordering bowel movement, imperative that she talked to the nursing staff. She is in agreeance with that and will except the aforementioned modality of care and be reevaluated as needed with consideration for orthopedic consult the next time Dr. Hartman is here for review of her shoulder. Diagnoses to be added: elevated d-dimer. Pulmonary embolus
[2016-08-28] MEDS: Acetaminophen/HYDROcodone 325-5 MG Tab PO PRN (20:04)
[2016-08-29] MEDS: Albuterol/Ipratropium 3.0-0.5 MG/3 ML Neb Soln NEB SCH ×4 (02:39→19:12)
[2016-08-29] MEDS: Omeprazole 20 MG Cap.CR PO SCH ×2 (07:29→17:18)
[2016-08-29] MEDS: Lactobacillus Rhamnosus GG (Probiotic) Cap PO SCH ×2 (07:29→17:19)
[2016-08-29] MEDS: Ferrous Sulfate 325 MG Tab PO SCH (07:30)
[2016-08-29] MEDS: Nicotine 7 MG/24 Hr Patch TRDERM SCH (07:30)
[2016-08-29] MEDS: guaiFENesin 600 MG Tab.ER PO SCH ×2 (07:34→17:19)
[2016-08-29] MEDS: PARoxetine 20 MG Tab PO SCH (07:34)
[2016-08-29] MEDS: Enoxaparin 80 MG/0.8 ML Syringe SUBCUT SCH ×2 (08:00→19:42)
[2016-08-29] MEDS: Acetaminophen 325 MG Tab PO PRN (08:21)
[2016-08-29] MEDS: Acetaminophen/HYDROcodone 325-5 MG Tab PO PRN ×2 (10:40→23:11)
[2016-08-29] MEDS: ClonazePAM 0.5 MG Tab PO PRN ×2 (11:05→23:12)
[2016-08-29] MEDS ORDERED: Albuterol/Ipratropium 3.0-0.5 MG/3 ML Neb Soln NEB ONE (11:09)
[2016-08-29] MEDS ORDERED: predniSONE 20 MG Tab PO ONE (11:45)
--- NOTE | 2016-08-29 11:50 | PCM.SN ---
- Free Text/Narrative Note: Staff reports that O2 sats are still hovering around 88-90% on oxygen. Patient also noted to have slightly increased wheezing. No other acute changes. Patient feels that overall she is unchanged. No new complaints. Sitting and watching TV. Lung exam performed. No accessory muscle use. No crackles. Noted to have mild-moderate wheezing. Extra neb ordered. Will also give dose of prednisone. Patient continues to receive Lovenox for recently diagnosed pulmonary emboli. Will continue to monitor for changes.
[2016-08-30] MEDS: Albuterol/Ipratropium 3.0-0.5 MG/3 ML Neb Soln NEB SCH ×4 (01:40→20:07)
[2016-08-30] MEDS: Lactobacillus Rhamnosus GG (Probiotic) Cap PO SCH ×2 (07:10→17:32)
[2016-08-30] MEDS: Omeprazole 20 MG Cap.CR PO SCH ×2 (07:10→17:32)
[2016-08-30] MEDS: Ferrous Sulfate 325 MG Tab PO SCH (07:10)
[2016-08-30] MEDS: PARoxetine 20 MG Tab PO SCH (07:11)
[2016-08-30] MEDS: guaiFENesin 600 MG Tab.ER PO SCH ×2 (07:11→17:32)
[2016-08-30] MEDS: Nicotine 7 MG/24 Hr Patch TRDERM SCH (07:12)
[2016-08-30] MEDS: Enoxaparin 80 MG/0.8 ML Syringe SUBCUT SCH ×2 (08:12→20:07)
[2016-08-30] MEDS: Acetaminophen 325 MG Tab PO PRN (11:28)
[2016-08-30] MEDS: ClonazePAM 0.5 MG Tab PO PRN (12:29)
[2016-08-30] MEDS: Acetaminophen/HYDROcodone 325-5 MG Tab PO PRN (13:49)
[2016-08-31] MEDS: Albuterol/Ipratropium 3.0-0.5 MG/3 ML Neb Soln NEB SCH ×4 (02:32→20:07)
[2016-08-31] MEDS: Acetaminophen 325 MG Tab PO PRN ×3 (02:47→19:30)
[2016-08-31] MEDS: Omeprazole 20 MG Cap.CR PO SCH ×2 (08:42→17:20)
[2016-08-31] MEDS: Lactobacillus Rhamnosus GG (Probiotic) Cap PO SCH ×2 (08:43→17:22)
[2016-08-31] MEDS: Nicotine 7 MG/24 Hr Patch TRDERM SCH (08:43)
[2016-08-31] MEDS: Ferrous Sulfate 325 MG Tab PO SCH (08:43)
[2016-08-31] MEDS: guaiFENesin 600 MG Tab.ER PO SCH ×2 (08:44→17:21)
[2016-08-31] MEDS: PARoxetine 20 MG Tab PO SCH (08:44)
[2016-08-31] MEDS: Enoxaparin 80 MG/0.8 ML Syringe SUBCUT SCH ×2 (08:49→20:08)
[2016-08-31] MEDS: ClonazePAM 0.5 MG Tab PO PRN ×3 (08:56→23:27)
--- NOTE | 2016-08-31 09:04 | PCM.PN ---
- General Info Date of Service: 08/31/16 Functional Status: Reports: pain controlled, tolerating diet - Review of Systems General: Reports: fatigue, other (Cough) HEENT: Reports: no symptoms Pulmonary: Reports: cough Cardiovascular: Reports: no symptoms. Denies: chest pain, palpitations Gastrointestinal: Reports: No symptoms, Constipation (Improving with medication) Genitourinary: Reports: no symptoms Musculoskeletal: Reports: shoulder pain (Controlled with sling and medication) Skin: Reports: no symptoms Neurological: Reports: no symptoms Psychiatric: Reports: depression (He was depressed because she remains hospitalized for strengthening having bits of anxiety.) - Patient Data Vitals - most recent: Last Vital Signs Temp 36.4 C 08/24/16 08:00 Pulse 88 08/28/16 09:30 Resp 24 H 08/24/16 08:00 BP 102/58 L 08/24/16 08:00 Pulse Ox 93 L 08/30/16 00:52 Weight - most recent: 70.2 kg I&O - last 24 hours: Intake & Output 08/30/16 08/31/16 08/31/16 22:59 06:59 14:59 Intake Total 720 Balance 720 Med Orders - Current: Current Medications Acetaminophen (Tylenol) 650 mg PO Q6H PRN PRN Reason: Pain Last Admin: 08/31/16 02:47 Dose: 650 mg Acetaminophen/Hydrocodone Bitart ([place] 325-5 Mg) 1 tab PO Q4HR PRN PRN Reason: Pain Last Admin: 08/30/16 13:49 Dose: 1 tab Albuterol/Ipratropium (Duoneb 3.0-0.5 Mg/3 Ml) 3 ml NEB Q6HRRT GUERLINE Last Admin: 08/31/16 08:43 Dose: 3 ml Benzonatate (Tessalon Perles) 200 mg PO TID PRN PRN Reason: Cough Calcium Carbonate/Glycine (Tums Extra Strength) 750 mg PO ASDIRECTED PRN PRN Reason: Indigestion Last Admin: 08/24/16 15:12 Dose: 750 mg Clonazepam (Klonopin) 0.5 mg PO BID PRN PRN Reason: Anxiety Last Admin: 08/31/16 08:56 Dose: 0.5 mg Enoxaparin Sodium (Lovenox) 80 mg SUBCUT Q12HR GUERLINE Last Admin: 08/31/16 08:49 Dose: 80 mg Etodolac (Lodine) 300 mg PO TID PRN PRN Reason: back pain Ferrous Sulfate (Ferrous Sulfate) 325 mg PO DAILY [facility] Last Admin: 08/31/16 08:43 Dose: 325 mg Guaifenesin (Mucinex) 600 mg PO BID [facility] Last Admin: 08/31/16 08:44 Dose: 600 mg Guaifenesin/Dextromethorphan (Robitussin Dm) 10 ml PO Q4H PRN PRN Reason: Cough Last Admin: 08/28/16 11:14 Dose: 10 ml Lactobacillus Rhamnosus (Culturelle) 1 cap PO BID [facility] Last Admin: 08/31/16 08:43 Dose: 1 cap Magnesium Hydroxide (Milk Of Magnesia) 30 ml PO DAILY PRN PRN Reason: Constipation Last Admin: 08/25/16 10:15 Dose: 30 ml Miscellaneous Information (Remove Patch) 1 ea TRDERM DAILY [facility] Last Admin: 08/31/16 08:50 Dose: 1 ea Nicotine (Habitrol) 7 mg TRDERM DAILY [facility] Last Admin: 08/31/16 08:43 Dose: 7 mg Omeprazole (Omeprazole) 20 mg PO BIDAC [facility] Last Admin: 08/31/16 08:42 Dose: 20 mg Paroxetine HCl (Paxil) 20 mg PO DAILY [facility] Last Admin: 08/31/16 08:44 Dose: 20 mg Saliva Substitute (Partha-Stir Oral [place]) 1 ml MUCMEM ASDIRECTED PRN PRN Reason: Dryness Senna (Senna) 8.6 mg PO DAILY PRN PRN Reason: Constipation Last Admin: 08/21/16 07:48 Dose: 8.6 mg Warfarin Sodium (Coumadin) 5 mg PO DAILY@1800 [facility] Discontinued Medications Albuterol/Ipratropium (Duoneb 3.0-0.5 Mg/3 Ml) 3 ml NEB ONETIME ONE Stop: 08/24/16 11:41 Last Admin: 08/24/16 11:45 Dose: 3 ml Albuterol/Ipratropium (Duoneb 3.0-0.5 Mg/3 Ml) 3 ml NEB ONETIME ONE Stop: 08/29/16 11:10 Last Admin: 08/29/16 11:30 Dose: 3 ml Enoxaparin Sodium (Lovenox) 80 mg SUBCUT ONETIME ONE Stop: 08/28/16 16:58 Last Admin: 08/28/16 17:18 Dose: 80 mg Iopamidol (Isovue-370 (76%)) 100 ml IVPUSH ONETIME ONE Stop: 08/28/16 14:31 Last Admin: 08/28/16 15:17 Dose: 100 ml Nicotine (Habitrol) 14 mg TRDERM DAILY GUERLINE Last Admin: 08/24/16 07:14 Dose: 14 mg Prednisone (Prednisone) 40 mg PO ONETIME ONE Stop: 08/29/16 11:46 Last Admin: 08/29/16 12:08 Dose: 40 mg Sodium Chloride (Saline Flush) 10 ml FLUSH ASDIRECTED PRN PRN Reason: Keep Vein Open - Exam General: alert, oriented HEENT: Pupils equal, Pupils reactive, EOMI Neck: supple Lungs: Clear to auscultation, Decreased breath sounds Cardiovascular: regular rate, regular rhythm Abdomen: bowel sounds present (Female) Exam: Deferred Extremities: edema (trace to the lower extremities sleeping in the chair with the feet mildly elevated) Skin: warm, dry, intact Neurological: no new focal deficit Psy/Mental Status: alert, anxious, depressed - Problem List & Annotations (1) Humeral shaft fracture SNOMED Code(s): 80497283 Code(s): S42.309A - UNSP FRACTURE OF SHAFT OF HUMERUS, UNSP ARM, INIT Status: Acute Priority: High Current Visit: Yes Qualifiers: Encounter type: sequela Fracture type: closed Laterality: right (2) Anemia SNOMED Code(s): 411534832 Code(s): D64.9 - ANEMIA, UNSPECIFIED Status: Acute Priority: High Current Visit: No Onset Date: ~08/13/16 Qualifiers: Anemia type: iron deficiency Annotation/Comment:: 08-10-16 -hgb in clinic was 7.2, 2 units of blood ordered, will re-check CBC in AM Twenty-july hemoglobin shows improvement, states appetite is better and feels better. Advised we will repeat CBC over the next 24-48 hours also will do stool test for occult blood as it was negative in clinic setting (3) Anxiety SNOMED Code(s): 05233394 Code(s): F41.9 - ANXIETY DISORDER, UNSPECIFIED Status: Acute Priority: High Current Visit: Yes Annotation/Comment:: Request increase in medication secondary of situational anxiety depression. Is not a morning person, had just awoken when I arrived for assessment this morning for reassessing pulmonary embolus status after the weekend of treatment. (4) COPD (chronic obstructive pulmonary disease) SNOMED Code(s): 75757185 Code(s): J44.9 - CHRONIC OBSTRUCTIVE PULMONARY DISEASE, UNSPECIFIED Status : Acute Priority: Medium Current Visit: Yes Qualifiers: COPD type: emphysema (5) Comfort measures only status SNOMED Code(s): 98458832969677 Code(s): Z51.5 - ENCOUNTER FOR PALLIATIVE CARE Status: Acute Priority: Medium Current Visit: No (6) Constipation SNOMED Code(s): 20163977 Code(s): K59.00 - CONSTIPATION, UNSPECIFIED Status: Acute Priority: Medium Current Visit: No Qualifiers: Constipation type: slow transit constipation Qualified Code(s): K59.01 - Slow transit constipation Annotation/Comment:: Has shown some improvement with recent bowel program (7) Generalized weakness SNOMED Code(s): 40101858 Code(s): R53.1 - WEAKNESS Status: Acute Priority: Medium Current Visit : No Annotation/Comment:: 08-10-16- PT/OT consult ordered for strengthening Jul PT OT to assess (8) Prolapse of bladder SNOMED Code(s): 843207823 Code(s): NQV7879 - Status: Acute Priority: Low Current Visit: Yes Annotation/Comment:: 08-10-2016 Noted on examination- denies need for assessment (9) Right humeral fracture SNOMED Code(s): 83305919 Code(s): S42.301A - UNSP FRACTURE OF SHAFT OF HUMERUS, RIGHT ARM, INIT Status: Acute Priority: High Current Visit: Yes Qualifiers: Encounter type: sequela Fracture type: closed Fracture alignment: nondisplaced (10) D-dimer, elevated SNOMED Code(s): 054590440 Code(s): R79.89 - OTHER SPECIFIED ABNORMAL FINDINGS OF BLOOD CHEMISTRY Status: Acute Priority: High Current Visit: Yes Annotation/Comment:: CT PE protocol ordered (11) Pulmonary embolus SNOMED Code(s): 97660626, 55380507 Code(s): I26.99 - OTHER PULMONARY EMBOLISM WITHOUT ACUTE COR PULMONALE Status: Acute Priority: High Current Visit: Yes Qualifiers: Pulmonary embolism type: other Chronicity: acute (12) Anticoagulation adequate with anticoagulant therapy SNOMED Code(s): 132921770, 477609589 Code(s): Z79.01 - YARD BRAKEMAN (CURRENT) USE OF ANTICOAGULANTS Status: Acute Priority: High Current Visit: Yes - Problem List Review Problem List Initiated/Reviewed/Updated: Yes - My Orders Last 24 Hours: My Active Orders 08/31/16 18:00 Warfarin [Coumadin] 5 mg PO DAILY@1800 09/02/16 05:11 INR,PT,PROTHROMBIN TIME [COAG] Routine 10/19/16 05:11 Chest 2V [CR] Routine - Plan Plan:: Admitted to swing bed status today secondary inability to provide self-care with assessment for home care today in agreeance of this change. General debility weakness of the patient is now accepted by her with recognition that she needs vigorous PT OT for strengthening to allow safe residence at her home. Her daughter arrived last evening and is also in agreeance of this with changes being made in the upcoming future for the improvement and safety in her apartment. X-ray of the right humerus to confirm positioning an early stages of healing will be performed on Wednesday, 19 August 2016, this would be ten days post injury. We will also obtain PA and if possible lateral but at least at PA to confirm/rule out other anomalies other than COPD for her desaturation and oxygen dependency. We will consider implementation of long-acting bronchodilators and pulmonary toileting in the prophylactic manner as applicable. She seems to be doing quite well with supplemental oxygen at this time. Aggressive physical therapy as well as occupational therapy will be implemented and once stability/improvement of her strength was obtained consideration for discharge would be considered. We will monitor hemoglobin next week to confirm stability as well as repeating her iron level to see if she is absorbing any of the supplemental iron is given since her admission. If not consideration for an approval for IV iron would be considered if oral is not beneficial in raising her level. 17 Aug 2016; Weekend went well, improved mentation and concentration. Will continued PT-OT and upcoming radiology and lab.
[2016-08-31] MEDS: Nicotine 14 MG/24 Hr Patch TRDERM SCH ×4 (11:04→12:49)
[2016-08-31] MEDS: Docusate Sodium 100 MG Cap PO SCH (13:01)
[2016-08-31] MEDS: Warfarin 5 MG Tab PO SCH (17:20)
[2016-08-31] MEDS: Acetaminophen/HYDROcodone 325-5 MG Tab PO PRN (23:27)
[2016-09-01] MEDS: Albuterol/Ipratropium 3.0-0.5 MG/3 ML Neb Soln NEB SCH ×4 (03:05→20:06)
[2016-09-01] MEDS: Docusate Sodium 100 MG Cap PO SCH (08:01)
[2016-09-01] MEDS: Lactobacillus Rhamnosus GG (Probiotic) Cap PO SCH ×2 (08:02→17:36)
[2016-09-01] MEDS: Ferrous Sulfate 325 MG Tab PO SCH (08:03)
[2016-09-01] MEDS: Nicotine 7 MG/24 Hr Patch TRDERM SCH (08:03)
[2016-09-01] MEDS: Enoxaparin 80 MG/0.8 ML Syringe SUBCUT SCH ×2 (08:05→20:06)
[2016-09-01] MEDS: guaiFENesin 600 MG Tab.ER PO SCH ×2 (08:06→17:37)
[2016-09-01] MEDS: PARoxetine 20 MG Tab PO SCH (08:06)
[2016-09-01] MEDS: Omeprazole 20 MG Cap.CR PO SCH ×2 (08:06→17:36)
[2016-09-01] MEDS: Acetaminophen/HYDROcodone 325-5 MG Tab PO PRN ×2 (08:08→21:57)
[2016-09-01] MEDS: ClonazePAM 0.5 MG Tab PO PRN ×3 (08:08→21:57)
[2016-09-01] MEDS: Warfarin 5 MG Tab PO SCH (17:36)
[2016-09-02] MEDS: Albuterol/Ipratropium 3.0-0.5 MG/3 ML Neb Soln NEB SCH ×4 (03:12→20:01)
[2016-09-02] MEDS: Docusate Sodium 100 MG Cap PO SCH (08:02)
[2016-09-02] MEDS: Ferrous Sulfate 325 MG Tab PO SCH (08:06)
[2016-09-02] MEDS: Lactobacillus Rhamnosus GG (Probiotic) Cap PO SCH ×2 (08:06→17:41)
[2016-09-02] MEDS: Enoxaparin 80 MG/0.8 ML Syringe SUBCUT SCH ×2 (08:07→20:01)
[2016-09-02] MEDS: guaiFENesin 600 MG Tab.ER PO SCH ×2 (08:08→17:41)
[2016-09-02] MEDS: Omeprazole 20 MG Cap.CR PO SCH ×2 (08:08→17:40)
[2016-09-02] MEDS: PARoxetine 20 MG Tab PO SCH (08:08)
[2016-09-02] MEDS: Nicotine 7 MG/24 Hr Patch TRDERM SCH (08:18)
[2016-09-02] MEDS: ClonazePAM 0.5 MG Tab PO PRN ×2 (10:38→17:42)
[2016-09-02] MEDS: Acetaminophen 325 MG Tab PO PRN (10:39)
[2016-09-02] MEDS: Warfarin 5 MG Tab PO SCH (17:40)
[2016-09-03] MEDS: Albuterol/Ipratropium 3.0-0.5 MG/3 ML Neb Soln NEB SCH ×4 (02:36→20:08)
[2016-09-03] MEDS: Lactobacillus Rhamnosus GG (Probiotic) Cap PO SCH ×2 (08:55→17:57)
[2016-09-03] MEDS: Docusate Sodium 100 MG Cap PO SCH (08:55)
[2016-09-03] MEDS: Ferrous Sulfate 325 MG Tab PO SCH (08:56)
[2016-09-03] MEDS: Enoxaparin 80 MG/0.8 ML Syringe SUBCUT SCH ×2 (08:56→20:07)
[2016-09-03] MEDS: Omeprazole 20 MG Cap.CR PO SCH ×2 (08:57→17:56)
[2016-09-03] MEDS: guaiFENesin 600 MG Tab.ER PO SCH ×2 (08:57→17:57)
[2016-09-03] MEDS: PARoxetine 20 MG Tab PO SCH (08:58)
[2016-09-03] MEDS: Nicotine 7 MG/24 Hr Patch TRDERM SCH (08:59)
[2016-09-03] MEDS: ClonazePAM 0.5 MG Tab PO PRN ×2 (11:50→17:59)
[2016-09-03] MEDS: Acetaminophen 325 MG Tab PO PRN ×2 (14:06→21:14)
[2016-09-04] MEDS: ClonazePAM 0.5 MG Tab PO PRN ×2 (00:52→16:23)
[2016-09-04] MEDS: Albuterol/Ipratropium 3.0-0.5 MG/3 ML Neb Soln NEB SCH ×4 (03:00→20:23)
[2016-09-04] MEDS: Lactobacillus Rhamnosus GG (Probiotic) Cap PO SCH ×2 (08:05→17:25)
[2016-09-04] MEDS: Ferrous Sulfate 325 MG Tab PO SCH (08:05)
[2016-09-04] MEDS: Docusate Sodium 100 MG Cap PO SCH (08:05)
[2016-09-04] MEDS: Nicotine 7 MG/24 Hr Patch TRDERM SCH (08:06)
[2016-09-04] MEDS: guaiFENesin 600 MG Tab.ER PO SCH ×2 (08:07→17:25)
[2016-09-04] MEDS: Enoxaparin 80 MG/0.8 ML Syringe SUBCUT SCH (08:07)
[2016-09-04] MEDS: Omeprazole 20 MG Cap.CR PO SCH ×2 (08:08→17:24)
[2016-09-04] MEDS: PARoxetine 20 MG Tab PO SCH (08:08)
[2016-09-04] MEDS ORDERED: ClonazePAM 0.5 MG Tab PO ONE (08:55)
--- NOTE | 2016-09-04 09:09 | PCM.SN ---
- Free Text/Narrative Note: Colvin has been therapeutic INR x2 doses. We will DC Lovenox at this time as she is maintaining. INR today 2.5, yesterday 2.7. Will continue on 5 mg daily and recheck Wednesday morning. Extreme concerned feeling that she is being held here unable to leave. I explained that we will implement a calendar so she is able to see our goal in bowel dates. She is scheduled to see Dr. Hartman in orthopedics for 23 September. We will do INR testing on Wednesday. I explained that her oxygen he is not intended to reach 100% as she fears that that would be a benchmark for her release. I told her that as the pulmonary embolus is treated and continues to resolve she will breathe easier with better saturation as well as less use of supplemental oxygen levels. Therapy will continue to work with her and as soon as sprue stable and strong enough to safely be discharged home consideration will be done for such with home health services as previously ordered when discharged from acute stay. We will make a slight change in her paxil to 25 mg.
[2016-09-04] MEDS: Acetaminophen 325 MG Tab PO PRN (10:39)
[2016-09-04] MEDS: Warfarin 5 MG Tab PO SCH (18:06)
[2016-09-05] MEDS: ClonazePAM 0.5 MG Tab PO PRN ×3 (00:43→22:07)
[2016-09-05] MEDS: Albuterol/Ipratropium 3.0-0.5 MG/3 ML Neb Soln NEB SCH ×4 (03:53→20:43)
[2016-09-05] MEDS: PARoxetine 20 MG Tab PO SCH (07:27)
[2016-09-05] MEDS ORDERED: PAROXETINE 25 MG PO SCH (08:00)
[2016-09-05] MEDS: Docusate Sodium 100 MG Cap PO SCH (08:08)
[2016-09-05] MEDS: Lactobacillus Rhamnosus GG (Probiotic) Cap PO SCH ×2 (08:08→17:43)
[2016-09-05] MEDS: Nicotine 7 MG/24 Hr Patch TRDERM SCH (08:09)
[2016-09-05] MEDS: Ferrous Sulfate 325 MG Tab PO SCH (08:09)
[2016-09-05] MEDS: guaiFENesin 600 MG Tab.ER PO SCH ×2 (08:10→17:43)
[2016-09-05] MEDS: Omeprazole 20 MG Cap.CR PO SCH ×2 (08:11→17:16)
[2016-09-05] MEDS: Warfarin 5 MG Tab PO SCH (17:42)
[2016-09-06] MEDS: Albuterol/Ipratropium 3.0-0.5 MG/3 ML Neb Soln NEB SCH ×4 (02:38→20:18)
[2016-09-06] MEDS: PARoxetine 20 MG Tab PO SCH (07:42)
[2016-09-06] MEDS: Docusate Sodium 100 MG Cap PO SCH (08:08)
[2016-09-06] MEDS: Lactobacillus Rhamnosus GG (Probiotic) Cap PO SCH ×2 (08:09→17:05)
[2016-09-06] MEDS: Nicotine 7 MG/24 Hr Patch TRDERM SCH (08:10)
[2016-09-06] MEDS: Ferrous Sulfate 325 MG Tab PO SCH (08:10)
[2016-09-06] MEDS: Omeprazole 20 MG Cap.CR PO SCH ×2 (08:12→17:04)
[2016-09-06] MEDS: guaiFENesin 600 MG Tab.ER PO SCH ×2 (08:13→17:06)
[2016-09-06] MEDS: ClonazePAM 0.5 MG Tab PO PRN ×2 (13:42→22:10)
[2016-09-06] MEDS: Warfarin 5 MG Tab PO SCH (17:05)
[2016-09-06] MEDS: Acetaminophen 325 MG Tab PO PRN (22:11)
[2016-09-07] MEDS: Albuterol/Ipratropium 3.0-0.5 MG/3 ML Neb Soln NEB SCH ×4 (03:24→20:44)
[2016-09-07] MEDS: Acetaminophen 325 MG Tab PO PRN ×2 (03:57→09:57)
[2016-09-07] MEDS: Docusate Sodium 100 MG Cap PO SCH (09:26)
[2016-09-07] MEDS: Ferrous Sulfate 325 MG Tab PO SCH (09:26)
[2016-09-07] MEDS: Omeprazole 20 MG Cap.CR PO SCH ×2 (09:26→17:18)
[2016-09-07] MEDS: Lactobacillus Rhamnosus GG (Probiotic) Cap PO SCH ×2 (09:27→17:19)
[2016-09-07] MEDS: guaiFENesin 600 MG Tab.ER PO SCH ×2 (09:27→17:19)
[2016-09-07] MEDS: PARoxetine 20 MG Tab PO SCH (09:27)
[2016-09-07] MEDS: Nicotine 7 MG/24 Hr Patch TRDERM SCH (09:29)
--- NOTE | 2016-09-07 09:42 | PCM.PN ---
- General Info Date of Service: 09/07/16 Functional Status: Reports: pain controlled - Review of Systems General: Reports: No Symptoms HEENT: Reports: no symptoms Pulmonary: Reports: no symptoms Cardiovascular: Reports: No Symptoms Gastrointestinal: Reports: No symptoms Genitourinary: Reports: no symptoms Musculoskeletal: Reports: joint pain (Chronic knee) Skin: Reports: no symptoms Psychiatric: Reports: no symptoms - Patient Data Vitals - most recent: Last Vital Signs Temp 37.6 C 08/31/16 08:00 Pulse 60 08/31/16 08:00 Resp 20 08/31/16 08:00 BP 121/63 08/31/16 08:00 Pulse Ox 98 09/05/16 08:55 Weight - most recent: 70.2 kg I&O - last 24 hours: Intake & Output 09/06/16 09/07/16 09/07/16 22:59 06:59 14:59 Intake Total 250 Balance 250 Lab Results last 24 hrs: Laboratory Results - last 24 hr 09/07/16 Range/Units 07:05 INR 3.1 Med Orders - Current: Current Medications Acetaminophen (Tylenol) 650 mg PO Q6H PRN PRN Reason: Pain Last Admin: 09/07/16 03:57 Dose: 650 mg Acetaminophen/Hydrocodone Bitart ([place] 325-5 Mg) 1 tab PO Q4HR PRN PRN Reason: Pain Last Admin: 09/01/16 21:57 Dose: 1 tab Albuterol/Ipratropium (Duoneb 3.0-0.5 Mg/3 Ml) 3 ml NEB Q6H GUERLINE Last Admin: 09/07/16 09:26 Dose: 3 ml Benzonatate (Tessalon Perles) 200 mg PO TID PRN PRN Reason: Cough Calcium Carbonate/Glycine (Tums Extra Strength) 750 mg PO ASDIRECTED PRN PRN Reason: Indigestion Last Admin: 08/24/16 15:12 Dose: 750 mg Clonazepam (Klonopin) 0.5 mg PO Q6H PRN PRN Reason: Anxiety Last Admin: 09/06/16 22:10 Dose: 0.5 mg Docusate Sodium (Colace) 100 mg PO DAILY@0900 [facility] [place] Last Admin: 09/07/16 09:26 Dose: 100 mg Etodolac (Lodine) 300 mg PO TID PRN PRN Reason: back pain Ferrous Sulfate (Ferrous Sulfate) 325 mg PO DAILY@0900 [facility] [place] Last Admin: 09/07/16 09:26 Dose: 325 mg Guaifenesin (Mucinex) 600 mg PO BID@0900,1800 [facility] [place] Last Admin: 09/07/16 09:27 Dose: 600 mg Guaifenesin/Dextromethorphan (Robitussin Dm) 10 ml PO Q4H PRN PRN Reason: Cough Last Admin: 08/28/16 11:14 Dose: 10 ml Lactobacillus Rhamnosus (Culturelle) 1 cap PO BID@0900,1800 [facility] [place] Last Admin: 09/07/16 09:27 Dose: 1 cap Magnesium Hydroxide (Milk Of Magnesia) 30 ml PO DAILY PRN PRN Reason: Constipation Last Admin: 08/25/16 10:15 Dose: 30 ml Miscellaneous Information (Remove Patch) 1 ea TRDERM DAILY@0900 [facility] [place] Last Admin: 09/07/16 09:32 Dose: 1 ea Nicotine (Habitrol) 7 mg TRDERM DAILY@0900 [facility] [place] Last Admin: 09/07/16 09:29 Dose: 7 mg Omeprazole (Omeprazole) 20 mg PO BID@0900,1730 [facility] [place] Last Admin: 09/07/16 09:26 Dose: 20 mg Paroxetine HCl (Paxil) 30 mg PO DAILY [facility] [place] Last Admin: 09/07/16 09:27 Dose: 30 mg Saliva Substitute (Partha-Stir Oral Immaculata) 1 ml MUCMEM ASDIRECTED PRN PRN Reason: Dryness Senna (Senna) 8.6 mg PO DAILY PRN PRN Reason: Constipation Last Admin: 08/21/16 07:48 Dose: 8.6 mg Warfarin Sodium (Coumadin) 3 mg PO MOWE@1800 [facility] [place] Warfarin Sodium (Coumadin) 5 mg PO SUTUTHFRSA@1800 [facility] [place] Discontinued Medications Albuterol/Ipratropium (Duoneb 3.0-0.5 Mg/3 Ml) 3 ml NEB ONETIME ONE Stop: 08/24/16 11:41 Last Admin: 08/24/16 11:45 Dose: 3 ml Albuterol/Ipratropium (Duoneb 3.0-0.5 Mg/3 Ml) 3 ml NEB Q6HRRT [facility] [place] Last Admin: 08/31/16 08:43 Dose: 3 ml Albuterol/Ipratropium (Duoneb 3.0-0.5 Mg/3 Ml) 3 ml NEB ONETIME ONE Stop: 08/29/16 11:10 Last Admin: 08/29/16 11:30 Dose: 3 ml Clonazepam (Klonopin) 0.5 mg PO BID PRN PRN Reason: Anxiety Last Admin: 08/31/16 08:56 Dose: 0.5 mg Clonazepam (Klonopin) 0.5 mg PO ONETIME ONE Stop: 09/04/16 08:56 Last Admin: 09/04/16 09:18 Dose: 0.5 mg Enoxaparin Sodium (Lovenox) 80 mg SUBCUT ONETIME ONE Stop: 08/28/16 16:58 Last Admin: 08/28/16 17:18 Dose: 80 mg Enoxaparin Sodium (Lovenox) 80 mg SUBCUT Q12HR [facility] [place] Last Admin: 08/31/16 08:49 Dose: 80 mg Enoxaparin Sodium (Lovenox) 80 mg SUBCUT Q12H [facility] [place] Last Admin: 09/04/16 08:07 Dose: 80 mg Ferrous Sulfate (Ferrous Sulfate) 325 mg PO DAILY [facility] [place] Last Admin: 08/31/16 08:43 Dose: 325 mg Guaifenesin (Mucinex) 600 mg PO BID [facility] [place] Last Admin: 08/31/16 08:44 Dose: 600 mg Iopamidol (Isovue-370 (76%)) 100 ml IVPUSH ONETIME ONE Stop: 08/28/16 14:31 Last Admin: 08/28/16 15:17 Dose: 100 ml Lactobacillus Rhamnosus (Culturelle) 1 cap PO BID [facility] [place] Last Admin: 08/31/16 08:43 Dose: 1 cap Miscellaneous Information (Remove Patch) 1 ea TRDERM DAILY [facility] [place] Last Admin: 08/31/16 08:50 Dose: 1 ea Nicotine (Habitrol) 14 mg TRDERM DAILY [facility] [place] Last Admin: 08/31/16 12:49 Dose: Not Given Nicotine (Habitrol) 7 mg TRDERM DAILY [facility] [place] Last Admin: 08/31/16 08:43 Dose: 7 mg [facility]) [facility] Last Admin: 08/31/16 08:42 Dose: 20 mg Paroxetine HCl (Paxil) 20 mg PO DAILY [facility] [place] Last Admin: 08/31/16 08:44 Dose: 20 mg Paroxetine HCl (Paxil) 20 mg PO DAILY@0900 [facility] [place] Last Admin: 09/04/16 08:08 Dose: 20 mg Paroxetine HCl (Paxil Cr) 25 mg PO DAILY [facility] [place] Prednisone (Prednisone) 40 mg PO ONETIME ONE Stop: 08/29/16 11:46 Last Admin: 08/29/16 12:08 Dose: 40 mg Sodium Chloride (Saline Flush) 10 ml FLUSH ASDIRECTED PRN PRN Reason: Keep Vein Open Warfarin Sodium (Coumadin) 5 mg PO DAILY@1800 [facility] [place] Last Admin: 09/06/16 17:05 Dose: 5 mg Warfarin Sodium (Coumadin) 3 mg PO ONETIME ONE Stop: 09/03/16 18:01 Last Admin: 09/03/16 17:56 Dose: 3 mg - Exam Quality Assessment: supplemental oxygen General: alert, oriented HEENT: Pupils equal, Pupils reactive Neck: supple Lungs: Clear to auscultation, Decreased breath sounds Cardiovascular: Regular Rate, Regular Rhythm Abdomen: bowel sounds present, soft (Female) Exam: Deferred Back Exam: normal inspection Extremities: edema (Trace lower ankle feet) Skin: warm, dry, intact Neurological: no new focal deficit Psy/Mental Status: alert, normal affect, normal mood - Problem List & Annotations (1) Humeral shaft fracture SNOMED Code(s): 83433434 Code(s): S42.309A - UNSP FRACTURE OF SHAFT OF HUMERUS, UNSP ARM, INIT Status: Acute Priority: High Current Visit: Yes Qualifiers: Encounter type: sequela Fracture type: closed Laterality: right (2) Anemia SNOMED Code(s): 079119907 Code(s): D64.9 - ANEMIA, UNSPECIFIED Status: Acute Priority: Medium Current Visit: Yes Onset Date: ~08/13/16 Qualifiers: Anemia type: iron deficiency Annotation/Comment:: 08-10-16 -hgb in clinic was 7.2, 2 units of blood ordered, will re-check CBC in AM Twenty-july hemoglobin shows improvement, states appetite is better and feels better. Advised we will repeat CBC over the next 24-48 hours also will do stool test for occult blood as it was negative in clinic setting (3) Anxiety SNOMED Code(s): 69013572 Code(s): F41.9 - ANXIETY DISORDER, UNSPECIFIED Status: Acute Priority: High Current Visit: Yes Annotation/Comment:: Request increase in medication secondary of situational anxiety depression. Is not a morning person, had just awoken when I arrived for assessment this morning for reassessing pulmonary embolus status after the weekend of treatment. 20 mar mood is good since increase in Paxil (4) COPD (chronic obstructive pulmonary disease) SNOMED Code(s): 13143788 Code(s): J44.9 - CHRONIC OBSTRUCTIVE PULMONARY DISEASE, UNSPECIFIED Status : Acute Priority: Medium Current Visit: Yes Qualifiers: COPD type: emphysema Annotation/Comment:: Oxygen now down 2 L of which is able to remove when ambulating to the bathroom containing good saturation (5) Comfort measures only status SNOMED Code(s): 52707473971753 Code(s): Z51.5 - ENCOUNTER FOR PALLIATIVE CARE Status: Acute Priority: Medium Current Visit: No (6) Constipation SNOMED Code(s): 87237059 Code(s): K59.00 - CONSTIPATION, UNSPECIFIED Status: Acute Priority: Medium Current Visit: Yes Qualifiers: Constipation type: slow transit constipation Qualified Code(s): K59.01 - Slow transit constipation Annotation/Comment:: Has shown some improvement with recent bowel program (7) Generalized weakness SNOMED Code(s): 79179226 Code(s): R53.1 - WEAKNESS Status: Acute Priority: Medium Current Visit : Yes Annotation/Comment:: 08-10-16- PT/OT consult ordered for strengthening Jul PT OT to assess Improving significantly with therapy, increase in hemoglobin, and mood stability (8) Prolapse of bladder SNOMED Code(s): 204280201 Code(s): QHS1805 - Status: Acute Priority: Low Current Visit: Yes Annotation/Comment:: 08-10-2016 Noted on examination- denies need for assessment (9) Right humeral fracture SNOMED Code(s): 11419422 Code(s): S42.301A - UNSP FRACTURE OF SHAFT OF HUMERUS, RIGHT ARM, INIT Status: Acute Priority: High Current Visit: Yes Qualifiers: Encounter type: sequela Fracture type: closed Fracture alignment: nondisplaced (10) D-dimer, elevated SNOMED Code(s): 107808743 Code(s): R79.89 - OTHER SPECIFIED ABNORMAL FINDINGS OF BLOOD CHEMISTRY Status: Acute Priority: High Current Visit: Yes Annotation/Comment:: CT PE protocol ordered (11) Pulmonary embolus SNOMED Code(s): 36573269, 24219805 Code(s): I26.99 - OTHER PULMONARY EMBOLISM WITHOUT ACUTE COR PULMONALE Status: Acute Priority: High Current Visit: Yes Qualifiers: Pulmonary embolism type: other Chronicity: acute (12) Anticoagulation adequate with anticoagulant therapy SNOMED Code(s): 404700576, 400887910 Code(s): Z79.01 - RESIDENTIAL (CURRENT) USE OF ANTICOAGULANTS Status: Acute Priority: High Current Visit: Yes Annotation/Comment:: Therapeutic the day dosing adjustments with recheck on Wednesday - Problem List Review Problem List Initiated/Reviewed/Updated: Yes - My Orders Last 24 Hours: My Active Orders 09/07/16 18:00 Warfarin [Coumadin] 3 mg PO MOWE@1800 09/08/16 18:00 Warfarin [Coumadin] 5 mg PO SUTUTHFRSA@1800 09/11/16 05:11 HEMOGLOBIN/HEMATOCRIT,HH [HEME] Routine INR,PT,PROTHROMBIN TIME [COAG] Routine 10/19/16 05:11 Chest 2V [CR] Routine - Plan Plan:: Admitted to swing bed status today secondary inability to provide self-care with assessment for home care today in agreeance of this change. General debility weakness of the patient is now accepted by her with recognition that she needs vigorous PT OT for strengthening to allow safe residence at her home. Her daughter arrived last evening and is also in agreeance of this with changes being made in the upcoming future for the improvement and safety in her apartment. X-ray of the right humerus to confirm positioning an early stages of healing will be performed on Wednesday, 19 August 2016, this would be ten days post injury. We will also obtain PA and if possible lateral but at least at PA to confirm/rule out other anomalies other than COPD for her desaturation and oxygen dependency. We will consider implementation of long-acting bronchodilators and pulmonary toileting in the prophylactic manner as applicable. She seems to be doing quite well with supplemental oxygen at this time. Aggressive physical therapy as well as occupational therapy will be implemented and once stability/improvement of her strength was obtained consideration for discharge would be considered. We will monitor hemoglobin next week to confirm stability as well as repeating her iron level to see if she is absorbing any of the supplemental iron is given since her admission. If not consideration for an approval for IV iron would be considered if oral is not beneficial in raising her level. 17 Aug 2016; Weekend went well, improved mentation and concentration. Will continued PT-OT and upcoming radiology and lab.
[2016-09-07] MEDS: ClonazePAM 0.5 MG Tab PO PRN ×2 (13:57→22:37)
[2016-09-08] MEDS: Albuterol/Ipratropium 3.0-0.5 MG/3 ML Neb Soln NEB SCH ×4 (03:22→20:02)
[2016-09-08] MEDS: PARoxetine 20 MG Tab PO SCH (08:07)
[2016-09-08] MEDS: Lactobacillus Rhamnosus GG (Probiotic) Cap PO SCH ×2 (08:08→17:43)
[2016-09-08] MEDS: Docusate Sodium 100 MG Cap PO SCH (08:08)
[2016-09-08] MEDS: Ferrous Sulfate 325 MG Tab PO SCH (08:09)
[2016-09-08] MEDS: Nicotine 7 MG/24 Hr Patch TRDERM SCH (08:09)
[2016-09-08] MEDS: guaiFENesin 600 MG Tab.ER PO SCH ×2 (08:10→17:44)
[2016-09-08] MEDS: Omeprazole 20 MG Cap.CR PO SCH ×2 (08:10→17:42)
[2016-09-08] MEDS: Acetaminophen/HYDROcodone 325-5 MG Tab PO PRN (09:39)
[2016-09-08] MEDS: ClonazePAM 0.5 MG Tab PO PRN ×2 (14:22→22:22)
[2016-09-08] MEDS: Warfarin 5 MG Tab PO SCH (17:42)
[2016-09-09] MEDS: Albuterol/Ipratropium 3.0-0.5 MG/3 ML Neb Soln NEB SCH ×4 (03:07→20:01)
[2016-09-09] MEDS: PARoxetine 20 MG Tab PO SCH (08:19)
[2016-09-09] MEDS: Ferrous Sulfate 325 MG Tab PO SCH (08:21)
[2016-09-09] MEDS: Docusate Sodium 100 MG Cap PO SCH (08:21)
[2016-09-09] MEDS: Lactobacillus Rhamnosus GG (Probiotic) Cap PO SCH ×2 (08:21→17:48)
[2016-09-09] MEDS: Nicotine 7 MG/24 Hr Patch TRDERM SCH (08:22)
[2016-09-09] MEDS: guaiFENesin 600 MG Tab.ER PO SCH ×2 (08:23→17:49)
[2016-09-09] MEDS: Omeprazole 20 MG Cap.CR PO SCH ×2 (08:23→17:47)
[2016-09-09] MEDS: Acetaminophen 325 MG Tab PO PRN (10:27)
[2016-09-09] MEDS: ClonazePAM 0.5 MG Tab PO PRN ×2 (12:54→22:06)
[2016-09-10] MEDS: Albuterol/Ipratropium 3.0-0.5 MG/3 ML Neb Soln NEB SCH ×4 (03:15→20:10)
[2016-09-10] MEDS: Acetaminophen/HYDROcodone 325-5 MG Tab PO PRN (04:00)
[2016-09-10] MEDS: PARoxetine 20 MG Tab PO SCH (08:39)
[2016-09-10] MEDS: Docusate Sodium 100 MG Cap PO SCH (08:40)
[2016-09-10] MEDS: Lactobacillus Rhamnosus GG (Probiotic) Cap PO SCH ×2 (08:40→17:14)
[2016-09-10] MEDS: Ferrous Sulfate 325 MG Tab PO SCH (08:40)
[2016-09-10] MEDS: Nicotine 7 MG/24 Hr Patch TRDERM SCH (08:41)
[2016-09-10] MEDS: guaiFENesin 600 MG Tab.ER PO SCH ×2 (08:42→17:14)
[2016-09-10] MEDS: Omeprazole 20 MG Cap.CR PO SCH ×2 (08:42→17:14)
[2016-09-10] MEDS: Acetaminophen 325 MG Tab PO PRN (11:34)
[2016-09-10] MEDS: ClonazePAM 0.5 MG Tab PO PRN ×2 (13:32→23:29)
[2016-09-10] MEDS: Warfarin 5 MG Tab PO SCH (17:14)
[2016-09-11] MEDS: Acetaminophen 325 MG Tab PO PRN ×2 (01:17→08:51)
[2016-09-11] MEDS: Albuterol/Ipratropium 3.0-0.5 MG/3 ML Neb Soln NEB SCH ×4 (03:27→20:31)
[2016-09-11] MEDS: Nicotine 7 MG/24 Hr Patch TRDERM SCH (08:35)
[2016-09-11] MEDS: PARoxetine 20 MG Tab PO SCH (08:36)
[2016-09-11] MEDS: Docusate Sodium 100 MG Cap PO SCH (08:38)
[2016-09-11] MEDS: Lactobacillus Rhamnosus GG (Probiotic) Cap PO SCH ×2 (08:38→17:38)
[2016-09-11] MEDS: Ferrous Sulfate 325 MG Tab PO SCH (08:39)
[2016-09-11] MEDS: guaiFENesin 600 MG Tab.ER PO SCH ×2 (08:48→17:36)
[2016-09-11] MEDS: Omeprazole 20 MG Cap.CR PO SCH ×2 (08:49→17:36)
[2016-09-11] MEDS: Acetaminophen/HYDROcodone 325-5 MG Tab PO PRN (11:53)
[2016-09-11] MEDS: ClonazePAM 0.5 MG Tab PO PRN ×2 (14:01→21:04)
[2016-09-11] MEDS: Warfarin 5 MG Tab PO SCH (17:36)
[2016-09-12] MEDS: Albuterol/Ipratropium 3.0-0.5 MG/3 ML Neb Soln NEB SCH ×4 (03:44→20:23)
[2016-09-12] MEDS: PARoxetine 20 MG Tab PO SCH (08:28)
[2016-09-12] MEDS: Docusate Sodium 100 MG Cap PO SCH (08:29)
[2016-09-12] MEDS: Lactobacillus Rhamnosus GG (Probiotic) Cap PO SCH ×2 (08:29→17:25)
[2016-09-12] MEDS: Ferrous Sulfate 325 MG Tab PO SCH (08:30)
[2016-09-12] MEDS: Omeprazole 20 MG Cap.CR PO SCH ×2 (08:31→17:24)
[2016-09-12] MEDS: guaiFENesin 600 MG Tab.ER PO SCH ×2 (08:31→17:24)
[2016-09-12] MEDS: Nicotine 7 MG/24 Hr Patch TRDERM SCH (08:32)
[2016-09-12] MEDS: Acetaminophen/HYDROcodone 325-5 MG Tab PO PRN (09:14)
[2016-09-12] MEDS: ClonazePAM 0.5 MG Tab PO PRN ×2 (13:36→20:23)
[2016-09-12] MEDS: Warfarin 5 MG Tab PO SCH (17:25)
[2016-09-13] MEDS: Albuterol/Ipratropium 3.0-0.5 MG/3 ML Neb Soln NEB SCH ×4 (04:03→20:19)
[2016-09-13] MEDS: Docusate Sodium 100 MG Cap PO SCH (08:06)
[2016-09-13] MEDS: PARoxetine 20 MG Tab PO SCH (08:06)
[2016-09-13] MEDS: Lactobacillus Rhamnosus GG (Probiotic) Cap PO SCH ×2 (08:08→17:21)
[2016-09-13] MEDS: Ferrous Sulfate 325 MG Tab PO SCH (08:08)
[2016-09-13] MEDS: Nicotine 7 MG/24 Hr Patch TRDERM SCH (08:08)
[2016-09-13] MEDS: Omeprazole 20 MG Cap.CR PO SCH ×2 (08:09→17:21)
[2016-09-13] MEDS: guaiFENesin 600 MG Tab.ER PO SCH ×2 (08:09→17:22)
[2016-09-13] MEDS: Acetaminophen/HYDROcodone 325-5 MG Tab PO PRN (08:11)
[2016-09-13] MEDS: ClonazePAM 0.5 MG Tab PO PRN ×2 (13:37→22:12)
[2016-09-13] MEDS: Warfarin 5 MG Tab PO SCH (17:21)
[2016-09-14] MEDS: Albuterol/Ipratropium 3.0-0.5 MG/3 ML Neb Soln NEB SCH ×4 (03:57→20:30)
[2016-09-14] MEDS: PARoxetine 20 MG Tab PO SCH (08:40)
[2016-09-14] MEDS: Docusate Sodium 100 MG Cap PO SCH (08:41)
[2016-09-14] MEDS: Ferrous Sulfate 325 MG Tab PO SCH (08:43)
[2016-09-14] MEDS: Nicotine 7 MG/24 Hr Patch TRDERM SCH (08:44)
[2016-09-14] MEDS: Omeprazole 20 MG Cap.CR PO SCH ×2 (08:46→17:40)
[2016-09-14] MEDS: guaiFENesin 600 MG Tab.ER PO SCH ×2 (08:46→17:41)
[2016-09-14] MEDS: Lactobacillus Rhamnosus GG (Probiotic) Cap PO SCH ×2 (08:51→17:41)
[2016-09-14 10:38] VITALS: BP 106/51
[2016-09-14] MEDS: Acetaminophen/HYDROcodone 325-5 MG Tab PO PRN (10:54)
[2016-09-14] MEDS: ClonazePAM 0.5 MG Tab PO PRN (10:57)
[2016-09-15] MEDS: Albuterol/Ipratropium 3.0-0.5 MG/3 ML Neb Soln NEB SCH ×4 (04:53→20:09)
[2016-09-15] MEDS: PARoxetine 20 MG Tab PO SCH (08:02)
[2016-09-15] MEDS: Docusate Sodium 100 MG Cap PO SCH (08:03)
[2016-09-15] MEDS: Lactobacillus Rhamnosus GG (Probiotic) Cap PO SCH ×2 (08:03→17:19)
[2016-09-15] MEDS: Ferrous Sulfate 325 MG Tab PO SCH (08:04)
[2016-09-15] MEDS: Nicotine 7 MG/24 Hr Patch TRDERM SCH (08:05)
[2016-09-15] MEDS: guaiFENesin 600 MG Tab.ER PO SCH ×2 (08:08→17:20)
[2016-09-15] MEDS: Omeprazole 20 MG Cap.CR PO SCH ×2 (08:09→17:19)
[2016-09-15] MEDS: ClonazePAM 0.5 MG Tab PO PRN ×2 (09:44→21:23)
--- NOTE | 2016-09-15 14:25 | PCM.DCSUM1 ---
Discharge Summary - Hospital Course Free Text/Narrative:: Has undergone course of extensive physical and occupational therapy secondary of debility of what appears to be a chronic iron deficiency anemia that has recently been treated with two units of packed RBCs during her acute hospitalization stay. She has undergone vigorous therapy for the sake of her fractured humeral head that led to the initial acute stay. Despite no evidence of DVT or COPD seem to digressed the week after admission to swing bed status and a positive d-dimer lead to a CT PE protocol revealing scattered small pulmonary embolus. She has been anticoagulated initially with Lovenox 80 mg twice daily, until therapeutic INR was reached with warfarin therapy. She has noted stability in general with her iron supplementation his hemoglobin has been holding at 9.7. Scheduled followup with Dr. Hartman in orthopedics for 23 September of which she will arrived early to obtained two views of the humerus that day. Oxygen concentrator has been implemented in the knee is at form awaiting her but we will need to place an order for a portable unit when she is able to leave the house in the upcoming weeks. We will also be asking for nebulizer machine and medications to continue through [facility] her provider of the concentrator. Home health nursing services will be implemented with [facility] at home as she had previously initiated per her request. Maintenance of her PT/INR will be conducted through blood draws per nursing service while she is homebound for strengthening. - Discharge Data Discharge Date: 09/16/16 Discharge Disposition: Home, W Home Health Agency 06 Condition: Good - Discharge Diagnosis/Problem(s) (1) Humeral shaft fracture SNOMED Code(s): 04009017 ICD Code: S42.309A - UNSP FRACTURE OF SHAFT OF HUMERUS, UNSP ARM, INIT Status: Acute Priority: Medium Current Visit: Yes Qualifiers: Encounter type: sequela Fracture type: closed Fracture morphology: comminuted Fracture alignment: nondisplaced Laterality: right Qualified Code(s): S42.354S - Nondisplaced comminuted fracture of shaft of humerus, right arm, sequela (2) Anemia SNOMED Code(s): 051771832 ICD Code: D64.9 - ANEMIA, UNSPECIFIED Status: Acute Priority: Medium Current Visit: Yes Onset Date: ~08/13/16 Problem Details: 08-10-16 -hgb in clinic was 7.2, 2 units of blood ordered, will re-check CBC in AM Twenty-july hemoglobin shows improvement, states appetite is better and feels better. Advised we will repeat CBC over the next 24-48 hours also will do stool test for occult blood as it was negative in clinic setting Qualifiers: Anemia type: iron deficiency (3) Anxiety SNOMED Code(s): 49438322 ICD Code: F41.9 - ANXIETY DISORDER, UNSPECIFIED Status: Acute Priority: High Current Visit: Yes Problem Details: Request increase in medication secondary of situational anxiety depression. Is not a morning person, had just awoken when I arrived for assessment this morning for reassessing pulmonary embolus status after the weekend of treatment. 20 mar mood is good since increase in Paxil (4) COPD (chronic obstructive pulmonary disease) SNOMED Code(s): 15854617 ICD Code: J44.9 - CHRONIC OBSTRUCTIVE PULMONARY DISEASE, UNSPECIFIED Status : Acute Priority: Medium Current Visit: Yes Problem Details: Oxygen now down 2 L of which is able to remove when ambulating to the bathroom containing good saturation Qualifiers: COPD type: emphysema (5) Comfort measures only status SNOMED Code(s): 79899432384986 ICD Code: Z51.5 - ENCOUNTER FOR PALLIATIVE CARE Status: Acute Priority: Medium Current Visit: No (6) Constipation SNOMED Code(s): 92307734 ICD Code: K59.00 - CONSTIPATION, UNSPECIFIED Status: Acute Priority: Medium Current Visit: Yes Problem Details: Has shown some improvement with recent bowel program Qualifiers: Constipation type: slow transit constipation Qualified Code(s): K59.01 - Slow transit constipation (7) Generalized weakness SNOMED Code(s): 27554399 ICD Code: R53.1 - WEAKNESS Status: Acute Priority: Medium Current Visit : Yes Problem Details: 08-10-16- PT/OT consult ordered for strengthening Jul PT OT to assess Improving significantly with therapy, increase in hemoglobin, and mood stability (8) Prolapse of bladder SNOMED Code(s): 657449378 ICD Code: UNA6155 - Status: Acute Priority: Low Current Visit: Yes Problem Details: 08-10-2016 Noted on examination- denies need for assessment (9) Right humeral fracture SNOMED Code(s): 01535606 ICD Code: S42.301A - UNSP FRACTURE OF SHAFT OF HUMERUS, RIGHT ARM, INIT Status: Acute Priority: High Current Visit: Yes Qualifiers: Encounter type: sequela Fracture type: closed Fracture alignment: nondisplaced (10) D-dimer, elevated SNOMED Code(s): 876559610 ICD Code: R79.89 - OTHER SPECIFIED ABNORMAL FINDINGS OF BLOOD CHEMISTRY Status: Acute Priority: High Current Visit: Yes Problem Details: CT PE protocol ordered (11) Pulmonary embolus SNOMED Code(s): 22028814, 59112412 ICD Code: I26.99 - OTHER PULMONARY EMBOLISM WITHOUT ACUTE COR PULMONALE Status: Acute Priority: High Current Visit: Yes Qualifiers: Pulmonary embolism type: other Chronicity: acute (12) Anticoagulation adequate with anticoagulant therapy SNOMED Code(s): 489515874, 053619200 ICD Code: 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 Status: Acute Priority: High Current Visit: Yes Problem Details: Therapeutic the day dosing adjustments with recheck on Wednesday - Patient Summary/Data Consults: Consultations 08/14/16 16:21 PT Evaluation and Treatment [CONS] Routine 08/14/16 16:23 Consult to Case Management [CONS] Routine 08/17/16 13:26 OT Evaluation and Treatment [CONS] Routine - Patient Instructions Diet: Heart Healthy Diet, Usual Diet as Tolerated, Drink 8-10+ Glasses/Day Activity: Cough & Deep Breathe Activity, Other: Continued use of [id number] until after orthopedic recheck Driving: Do Not Drive Showering/Bathing: October Shower Notify Provider of: Increased Pain, Swelling and Redness - Discharge Plan Prescriptions/Med Rec: Albuterol/Ipratropium [DuoNeb 3.0-0.5 MG/3 ML] 3 ml NEB Q6HRRT #60 neb PARoxetine [Paxil] 30 mg PO DAILY #30 tablet Warfarin [Coumadin] 3 mg PO MOWE@1800 #30 tablet Warfarin [Coumadin] 5 mg PO SUTUTHFRSA@1800 #60 tablet Home Medications: Home Meds Etodolac 300 mg PO ASDIRECTED PRN 10/17/14 [History] Ferrous Sulfate 325 mg PO DAILY 10/17/14 [History] Omeprazole 20 mg PO BID 10/18/14 [History] ClonazePAM [KlonoPIN] 0.5 mg PO BID PRN 03/15/15 [History] Acetaminophen [Tylenol] 650 mg PO Q6H PRN #0 tablet 08/13/16 [Rx] Acetaminophen/HYDROcodone [Chesaning 325-5 MG] 1 tab PO Q4HR PRN #0 tablet 08/13/16 [Rx] Sennosides [Senna] 8.6 mg PO DAILY PRN #0 tablet 08/13/16 [Rx] Albuterol/Ipratropium [DuoNeb 3.0-0.5 MG/3 ML] 3 ml NEB Q6HRRT #60 neb 09/15/16 [Rx] Calcium Carbonate [Tums Extra Strength] 750 mg PO ASDIRECTED PRN #0 tab.chew [Rx] Carboxymethylcellulose/Lytes [Partha-Stir Oral [place]] 1 ml MUCMEM ASDIRECTED PRN # 0 bottle 09/15/16 [Rx] Dextromethorphan/guaiFENesin [Robitussin DM] 10 ml PO Q4H PRN #0 cup 09/15/16 [ Rx] Docusate Sodium [Colace] 100 mg PO DAILY@0900 cap 09/15/16 [Rx] Lactobacillus Rhamnosus GG [Culturelle] 1 cap PO BID@0900,1800 cap 09/15/16 [Rx ] Magnesium Hydroxide [Milk of Magnesia] 30 ml PO DAILY PRN #0 cup 09/15/16 [Rx] PARoxetine [Paxil] 30 mg PO DAILY #30 tablet 09/15/16 [Rx] Warfarin [Coumadin] 3 mg PO MOWE@1800 #30 tablet 09/15/16 [Rx] Warfarin [Coumadin] 5 mg PO SUTUTHFRSA@1800 #60 tablet 09/15/16 [Rx] Patient Handouts: Warfarin: What You Need to Know, Chronic Obstructive Pulmonary Disease, [id number], Pulmonary Embolism Referrals: Home Health, [facility] [Other] (Referral for [facility] Home Health Dx: weakness, deconditioning, fractured humerous (right)- Consult to PT/OT for ADLs and weakness ; Patient on coumadin- please check PT/INR weekly and fax results to [facility]. [phone]) Ministerio Recinos NP [Nurse Practitioner] - (X ray ordered for 09/23/16 for follow up of fracture. Please get x-ray when here for follow up appointment with Dr. Hartman. ) - Discharge Summary/Plan Comment DC Time >30 min.: Yes - General Info Date of Service: 09/15/16 Functional Status: Reports: pain controlled - Review of Systems General: Reports: No Symptoms HEENT: Reports: no symptoms Pulmonary: Reports: no symptoms, cough (After nebulizers) Cardiovascular: Reports: No Symptoms Gastrointestinal: Reports: No symptoms Genitourinary: Reports: no symptoms Musculoskeletal: Reports: shoulder pain (Significantly improved still using immobilization secondary of humeral head fracture) Skin: Reports: no symptoms Neurological: Reports: No Symptoms Psychiatric: Reports: anxiety - Patient Data Vitals - Most Recent: Last Vital Signs Temp 37.1 C 09/14/16 08:00 Pulse 66 09/14/16 08:00 Resp 18 09/14/16 08:00 BP 106/51 L 09/14/16 08:00 Pulse Ox 93 L 09/14/16 08:00 Weight - Most Recent: 70.806 kg I&O - Last 24 hours: Intake & Output 09/14/16 09/15/16 09/15/16 22:59 06:59 14:59 Intake Total 100 Balance 100 Med Orders - Current: Current Medications Acetaminophen (Tylenol) 650 mg PO Q6H PRN PRN Reason: Pain Last Admin: 09/11/16 08:51 Dose: 650 mg Acetaminophen/Hydrocodone Bitart ([place] 325-5 Mg) 1 tab PO Q4HR PRN PRN Reason: Pain Last Admin: 09/14/16 10:54 Dose: 1 tab Albuterol/Ipratropium (Duoneb 3.0-0.5 Mg/3 Ml) 3 ml NEB Q6H GUERLINE Last Admin: 09/15/16 08:04 Dose: 3 ml Benzonatate (Tessalon Perles) 200 mg PO TID PRN PRN Reason: Cough Calcium Carbonate/Glycine (Tums Extra Strength) 750 mg PO ASDIRECTED PRN PRN Reason: Indigestion Last Admin: 08/24/16 15:12 Dose: 750 mg Clonazepam (Klonopin) 0.5 mg PO Q6H PRN PRN Reason: Anxiety Last Admin: 09/15/16 09:44 Dose: 0.5 mg Docusate Sodium (Colace) 100 mg PO DAILY@0900 GUERLINE Last Admin: 09/15/16 08:03 Dose: 100 mg Etodolac (Lodine) 300 mg PO TID PRN PRN Reason: back pain Ferrous Sulfate (Ferrous Sulfate) 325 mg PO DAILY@0900 [facility] Last Admin: 09/15/16 08:04 Dose: 325 mg Guaifenesin (Mucinex) 600 mg PO BID@0900,1800 [facility] Last Admin: 09/15/16 08:08 Dose: 600 mg Guaifenesin/Dextromethorphan (Robitussin Dm) 10 ml PO Q4H PRN PRN Reason: Cough Last Admin: 08/28/16 11:14 Dose: 10 ml Lactobacillus Rhamnosus (Culturelle) 1 cap PO BID@0900,1800 [facility] Last Admin: 09/15/16 08:03 Dose: 1 cap Magnesium Hydroxide (Milk Of Magnesia) 30 ml PO DAILY PRN PRN Reason: Constipation Last Admin: 08/25/16 10:15 Dose: 30 ml Miscellaneous Information (Remove Patch) 1 ea TRDERM DAILY@0900 [facility] Last Admin: 09/15/16 08:07 Dose: 1 ea Nicotine (Habitrol) 7 mg TRDERM DAILY@0900 [facility] Last Admin: 09/15/16 08:05 Dose: 7 mg Omeprazole (Omeprazole) 20 mg PO BID@0900,1730 [facility] Last Admin: 09/15/16 08:09 Dose: 20 mg Paroxetine HCl (Paxil) 30 mg PO DAILY [facility] Last Admin: 09/15/16 08:02 Dose: 30 mg Saliva Substitute (Partha-Stir Oral [place]) 1 ml MUCMEM ASDIRECTED PRN PRN Reason: Dryness Senna (Senna) 8.6 mg PO DAILY PRN PRN Reason: Constipation Last Admin: 08/21/16 07:48 Dose: 8.6 mg Warfarin Sodium (Coumadin) 3 mg PO MOWE@1800 [facility] Last Admin: 09/14/16 17:40 Dose: 3 mg Warfarin Sodium (Coumadin) 5 mg PO SUTUTHFRSA@1800 [facility] Last Admin: 09/13/16 17:21 Dose: 5 mg Discontinued Medications Albuterol/Ipratropium (Duoneb 3.0-0.5 Mg/3 Ml) 3 ml NEB ONETIME ONE Stop: 08/24/16 11:41 Last Admin: 08/24/16 11:45 Dose: 3 ml Albuterol/Ipratropium (Duoneb 3.0-0.5 Mg/3 Ml) 3 ml NEB Q6HRRT [facility] Last Admin: 08/31/16 08:43 Dose: 3 ml Albuterol/Ipratropium (Duoneb 3.0-0.5 Mg/3 Ml) 3 ml NEB ONETIME ONE Stop: 08/29/16 11:10 Last Admin: 08/29/16 11:30 Dose: 3 ml Clonazepam (Klonopin) 0.5 mg PO BID PRN PRN Reason: Anxiety Last Admin: 08/31/16 08:56 Dose: 0.5 mg Clonazepam (Klonopin) 0.5 mg PO ONETIME ONE Stop: 09/04/16 08:56 Last Admin: 09/04/16 09:18 Dose: 0.5 mg Enoxaparin Sodium (Lovenox) 80 mg SUBCUT ONETIME ONE Stop: 08/28/16 16:58 Last Admin: 08/28/16 17:18 Dose: 80 mg Enoxaparin Sodium (Lovenox) 80 mg SUBCUT Q12HR [facility] Last Admin: 08/31/16 08:49 Dose: 80 mg Enoxaparin Sodium (Lovenox) 80 mg SUBCUT Q12H [facility] Last Admin: 09/04/16 08:07 Dose: 80 mg Ferrous Sulfate (Ferrous Sulfate) 325 mg PO DAILY [facility] Last Admin: 08/31/16 08:43 Dose: 325 mg Guaifenesin (Mucinex) 600 mg PO BID [facility] Last Admin: 08/31/16 08:44 Dose: 600 mg Iopamidol (Isovue-370 (76%)) 100 ml IVPUSH ONETIME ONE Stop: 08/28/16 14:31 Last Admin: 08/28/16 15:17 Dose: 100 ml Lactobacillus Rhamnosus (Culturelle) 1 cap PO BID [facility] Last Admin: 08/31/16 08:43 Dose: 1 cap Miscellaneous Information (Remove Patch) 1 ea TRDERM DAILY [facility] Last Admin: 08/31/16 08:50 Dose: 1 ea Nicotine (Habitrol) 14 mg TRDERM DAILY [facility] Last Admin: 08/31/16 12:49 Dose: Not Given Nicotine (Habitrol) 7 mg TRDERM DAILY [facility] Last Admin: 08/31/16 08:43 Dose: 7 mg Omeprazole (Omeprazole) 20 mg PO BIDAC [facility] Last Admin: 08/31/16 08:42 Dose: 20 mg Paroxetine HCl (Paxil) 20 mg PO DAILY [facility] Last Admin: 08/31/16 08:44 Dose: 20 mg Paroxetine HCl (Paxil) 20 mg PO DAILY@0900 [facility] Last Admin: 09/04/16 08:08 Dose: 20 mg Paroxetine HCl (Paxil Cr) 25 mg PO DAILY [facility] Prednisone (Prednisone) 40 mg PO ONETIME ONE Stop: 08/29/16 11:46 Last Admin: 08/29/16 12:08 Dose: 40 mg Sodium Chloride (Saline Flush) 10 ml FLUSH ASDIRECTED PRN PRN Reason: Keep Vein Open Warfarin Sodium (Coumadin) 5 mg PO DAILY@1800 [facility] Last Admin: 09/06/16 17:05 Dose: 5 mg Warfarin Sodium (Coumadin) 3 mg PO ONETIME ONE Stop: 09/03/16 18:01 Last Admin: 09/03/16 17:56 Dose: 3 mg - Exam General: Reports: alert, oriented HEENT: Reports: Pupils equal, Pupils reactive, EOMI Neck: Reports: supple Lungs: Reports: Clear to auscultation, Decreased breath sounds Cardiovascular: Reports: Regular Rate, Regular Rhythm Abdomen: Reports: bowel sounds present, soft, no tenderness (Female) Exam: Deferred Rectal (Female) Exam: Deferred Back Exam: Reports: normal inspection Extremities: Reports: edema (+1 edema to lower extremities skin warm and dry.Upper extremities free of edema right upper extremity immobilized in sling and swathe secondary of humeral head fracture) Skin: Reports: warm, dry, intact Neurological: Reports: no new focal deficit Psy/Mental Status: Reports: alert, normal affect, normal mood, anxious *Q Meaningful Use (DIS) - VTE *Q VTE Criteria *Q: - Stroke *Q Stroke Criteria *Q: - AMI *Q AMI Criteria *Q:
[2016-09-15] MEDS: Warfarin 5 MG Tab PO SCH (17:19)
[2016-09-16] MEDS: Albuterol/Ipratropium 3.0-0.5 MG/3 ML Neb Soln NEB SCH ×2 (04:11→08:51)
[2016-09-16] MEDS ORDERED: NICOTINE 21 MG TRDERM SCH (08:00)
[2016-09-16] MEDS: PARoxetine 20 MG Tab PO SCH (08:50)
[2016-09-16] MEDS: Docusate Sodium 100 MG Cap PO SCH (08:51)
[2016-09-16] MEDS: Lactobacillus Rhamnosus GG (Probiotic) Cap PO SCH (08:51)
[2016-09-16] MEDS: Ferrous Sulfate 325 MG Tab PO SCH (08:52)
[2016-09-16] MEDS: guaiFENesin 600 MG Tab.ER PO SCH (08:53)
[2016-09-16] MEDS: Omeprazole 20 MG Cap.CR PO SCH (08:53)
[2016-09-16] MEDS: Acetaminophen/HYDROcodone 325-5 MG Tab PO PRN (08:54)
[2016-09-16] MEDS: ClonazePAM 0.5 MG Tab PO PRN (10:22)
== END 2016-09-16 13:55 | disposition home health service (06) | DRG 947 ==
LOC: LL.MS 13:45 → LL.SWG 08-18 10:40
PROVIDERS: ADMIT Nurse Practitioner; ATTEND Nurse Practitioner
DX: R53.1 Weakness (principal); I26.99 Other pulmonary embolism without acute cor pulmonale; S42.301D Unspecified fracture of shaft of humerus, right arm, subsequent encounter for fracture with routine healing; N81.10 Cystocele, unspecified; R41.0 Disorientation, unspecified; D50.9 Iron deficiency anemia, unspecified; Z51.5 Encounter for palliative care; J44.9 Chronic obstructive pulmonary disease, unspecified; F17.210 Nicotine dependence, cigarettes, uncomplicated; F32.9 Major depressive disorder, single episode, unspecified; Z99.81 Dependence on supplemental oxygen; F41.8 Other specified anxiety disorders; Z79.01 Long term (current) use of anticoagulants; K59.01 Slow transit constipation; W19.XXXD Unspecified fall, subsequent encounter
CPT/HCPCS: 36415; 36416; 71020; 71275; 73060-RT; 73562-RT; 85014; 85018; 85025; 85379; 85610; 94640; 94664; 97110-GO; 97110-GP; 97116-GP; 97140-GP; 97161-GP; 97165-GO; 97530-GO; 97530-GP; 97535-GO; A9270-GY; J1650; Q9967

== ENCOUNTER 2016-10-11 14:45 | Emergency (ER) | payer MEDICARE, MEDICAID ==
[2016-10-11] MEDS ORDERED: Ondansetron 4 MG/2 ML SDV IVPUSH ONE (15:00)
[2016-10-11] MEDS ORDERED: Lactated Ringers 1,000 ML IV SCH (15:00)
[2016-10-11] MEDS ORDERED: Diphtheria/Tetanus Toxoids,Adult (Td) 0.5 ML Syringe IM ONE (15:14)
[2016-10-11 15:36] LABS: CHLORIDE,CL 102 mmol/L (98-107); SODIUM,NA 139 mmol/L (136-145)
[2016-10-11] MEDS ORDERED: Morphine 10 MG/ML Syringe ONE (15:38)
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
== END 2016-10-11 16:05 ==
LOC: LL.ED 14:45
DX: T20.36XA Burn of third degree of forehead and cheek, initial encounter (principal); T22.352A Burn of third degree of left shoulder, initial encounter; T20.312A Burn of third degree of left ear [any part, except ear drum], initial encounter; T20.311A Burn of third degree of right ear [any part, except ear drum], initial encounter; T20.23XA Burn of second degree of chin, initial encounter; T20.24XA Burn of second degree of nose (septum), initial encounter; T20.27XA Burn of second degree of neck, initial encounter; T21.21XA Burn of second degree of chest wall, initial encounter; T23.241A Burn of second degree of multiple right fingers (nail), including thumb, initial encounter; D64.9 Anemia, unspecified; Z79.899 Other long term (current) drug therapy; F17.210 Nicotine dependence, cigarettes, uncomplicated; F41.9 Anxiety disorder, unspecified; F32.9 Major depressive disorder, single episode, unspecified; Z98.890 Other specified postprocedural states; X08.8XXA Exposure to other specified smoke, fire and flames, initial encounter; Y92.009 Unspecified place in unspecified non-institutional (private) residence as the place of occurrence of the external cause
CPT/HCPCS: 16025; 36415; 71010; 80053; 85025; 85610; 90471; 93005; 96361; 96374; 96375; 96376; 99291; 99292